=== PATIENT | female | born 1955 | race Caucasian/White ===

== ENCOUNTER → 2020-06-30 | Outpatient (CLI) | payer MEDICARE ==
[~2020-06-30] MED LIST: AMLO-257 PO; LORA1TAB3 PO; METO200T49 PO; TRAM50TA4 PO
== END | disposition home or self-care (01) ==
LOC: SHCH 13:15
PROVIDERS: ATTEND Internal Medicine Cardiovascular Disease
DX: I11.9 Hypertensive heart disease without heart failure (principal); I10 Essential (primary) hypertension; R06.09 Other forms of dyspnea; R09.89 Other specified symptoms and signs involving the circulatory and respiratory systems; R55 Syncope and collapse
CPT/HCPCS: 93306; 93356; 93880

== ENCOUNTER 2021-04-27 10:00 | Observation (INO) | payer OTHER ==
[~2021-04-27] VITALS: Ht 172.7 cm; Wt 89.4 kg
[2021-04-27 10:51] LABS: APPEARANCE,URINE Cloudy (CLEAR); BILIRUBIN,URINE Negative (NEGATIVE); COLOR,URINE Yellow (YELLOW); GLUCOSE, URINE (UA) Negative (NEGATIVE); KETONES,URINE Negative (NEGATIVE); LEUKOCYTE ESTERASE ,URINE Large (NEGATIVE); NITRATE,URINE Positive (NEGATIVE); OCCULT BLOOD,URINE Negative (NEGATIVE); PH,URINE 5.5 (5.0-8.0); PROTEIN,URINE Negative (NEGATIVE); UROBILINOGEN,URINE 0.2 mg/dL (0.2-1.0)
[2021-04-27 10:56] LABS: BASOPHILS % (AUTO) 0.8 % (0.0-5.0); EOSINOPHILS % (AUTO) 3.7 % (0.0-8.0); HEMATOCRIT 33.2 % (36-48); LYMPHOCYTES % (AUTO) 10.6 % (21.0-51.0); MEAN CORPUSCULAR HEMOGLOBIN 31.1 pg (27.0-33.0); MEAN CORPUSCULAR HGB CONC 32.2 g/dL (32.0-36.0); MEAN CORPUSCULAR VOLUME 96.5 fL (79-99); MONOCYTES % (AUTO) 6.4 % (3.0-13.0); NEUTROPHILS % (AUTO) 78.1 % (40.0-77.0); PLATELET COUNT (AUTO) 304 K/uL (130-400); RED BLOOD CELL COUNT(AUTO) 3.44 MIL/uL (4.00-5.50); RED CELL DISTRIBUTION WIDTH 14.7 % (11.0-15.5); WHITE BLOOD COUNT (AUTO) 9.9 K/uL (4.8-10.8)
[2021-04-27 10:58] LABS: BACTERIA,URINE Many /HPF (None Seen); RBC,URINE 0-1 /HPF (0-1); SQUAMOUS EPITHELIAL CELL,UR Rare /HPF (0-2); WBC,URINE >100 /HPF (0-1)
[2021-04-27 11:11] LABS: CREATININE 0.9 mg/dL (0.5-1.5); POTASSIUM 4.4 mmol/L (3.5-5.1)
[2021-04-27 12:01] VITALS: BP 122/70
[2021-04-27 12:01] LABS: INR 1.04 (0.85-1.15); PROTHROMBIN TIME 11.3 SEC (9.6-11.6)
[2021-04-27] MEDS ORDERED: CARV25TA PO (12:04)
[2021-04-27] MEDS ORDERED: LOSA100T58 PO (12:04)
[2021-04-27] MEDS ORDERED: AMLO-258 PO (12:04)
[2021-04-27] MEDS ORDERED: CLON0.1T PO (12:04)
[2021-04-27] MEDS ORDERED: FOLI0.4T6 PO (12:04)
[2021-04-28] VITALS (28 sets, daily range): BP systolic 120–153; BP diastolic 65–85
[2021-04-28] MEDS ORDERED: CEFAZOLIN SODIUM 1 GM VIAL IVP SCH (06:00)
[2021-04-28] MEDS ORDERED: GENTAMICIN SULFATE 240 MG in 0.9%NACL 100ML 100 ML IV SCH (06:00)
[2021-04-28] MEDS ORDERED: VANCOMYCIN 1G/250ML KIT 250 ML IV ONE (07:10)
[2021-04-28] MEDS ORDERED: LACTATED RINGERS 1000ML 1,000 ML IV ONE (07:10)
[2021-04-28] MEDS ORDERED: OMEP20CA12 PO (07:27)
[2021-04-28] MEDS ORDERED: CEFAZOLIN SODIUM 1 GM VIAL ONE ×2 (07:43→07:44)
[2021-04-28] MEDS ORDERED: LIDOCAINE PF 100MG/5ML (2%) SYRINGE 5ML ONE (08:08)
[2021-04-28] MEDS ORDERED: SUCCINYLCHOLINE CHLORIDE 20 MG/ML 10 ML VIAL ONE (08:08)
[2021-04-28] MEDS ORDERED: DEXAMETHASONE SOD PHOSPHATE 10MG/ML 1ML VIAL ONE (08:08)
[2021-04-28] MEDS ORDERED: PROPOFOL 10 MG/ML 20ML VIAL IV ONE (08:09)
[2021-04-28] MEDS ORDERED: MIDAZOLAM HCL 1 MG/ML 2ML VIAL ONE (08:09)
[2021-04-28] MEDS ORDERED: ROCURONIUM 10MG/1ML SYR 10 MG/ML ML ONE ×2 (08:09→09:38)
[2021-04-28] MEDS ORDERED: FENTANYL CITRATE PF 50 MCG/1 ML 2ML VIAL ONE (08:09)
[2021-04-28] MEDS ORDERED: ROPIVACAINE 0.5% 5MG/ML 30ML IJ ONE (08:09)
[2021-04-28] MEDS: VANCOMYCIN 1.5GM/NS 250ML IV SCH ×4 (08:30→09:09)
[2021-04-28] MEDS ORDERED: EPHEDRINE SULFATE 50 MG/ML AMPULE ONE (09:12)
[2021-04-28] MEDS ORDERED: VANCOMYCIN 1G VIAL ONE (09:17)
[2021-04-28] MEDS ORDERED: CALCIUM CARB 500MG PO PRN (12:00)
[2021-04-28] MEDS: CEFAZOLIN SODIUM 1 GM VIAL IVP SCH ×2 (12:00→20:37)
[2021-04-28] MEDS: 0.9%NACL 1000ML 1,000 ML IV SCH ×2 (12:00→22:28)
[2021-04-28] MEDS ORDERED: DiphenhydrAMINE HCL 50 MG/ML VIAL IVP PRN (12:00)
[2021-04-28] MEDS: PSYLLIUM SEED 1 EACH PACKET PO SCH (12:00)
[2021-04-28] MEDS ORDERED: OXYCODONE HCL 5 MG TAB PO PRN (12:00)
[2021-04-28] MEDS ORDERED: FERROUS FUMARATE 324 MG TABLET PO PRN (12:00)
[2021-04-28] MEDS ORDERED: KETOROLAC 15MG/ML VIAL (15MG/ML) IV PRN (12:00)
[2021-04-28] MEDS ORDERED: ONDANSETRON 4MG INJ IVP PRN (12:00)
[2021-04-28] MEDS ORDERED: KCL 20 MEQ ERTAB PO PRN (12:00)
[2021-04-28] MEDS ORDERED: LIDOCAINE HCL-MPF 1% 2ML VIAL IV PRN (12:00)
[2021-04-28] MEDS ORDERED: POTASSIUM CHLORIDE 10% ELIXIR 20 MEQ/15 ML UDCUP PO PRN (12:00)
[2021-04-28] MEDS: ACETAMINOPHEN 500 MG TABLET PO SCH ×2 (12:00→20:36)
[2021-04-28] MEDS ORDERED: POTASSIUM CHLORIDE 20MEQ/100ML 100 ML IV PRN (12:00)
[2021-04-28] MEDS ORDERED: TEMAZEPAM 15 MG CAPSULE PO PRN (12:00)
[2021-04-28] MEDS: TRAMADOL HCL 50 MG TABLET PO PRN (18:51)
[2021-04-28] MEDS: OXYCODONE HCL 5 MG TAB PO PRN (20:31)
[2021-04-28] MEDS: FAMOTIDINE 20MG TAB PO SCH (20:31)
[2021-04-28] MEDS: NITROFURANTOIN MONOHYD/M-CRYST 100 MG CAPSULE PO SCH (20:31)
[2021-04-28] MEDS: ASPIRIN 81 MG EC TAB PO SCH (20:31)
[2021-04-28] MEDS: CELECOXIB 200 MG CAP PO SCH (20:31)
[2021-04-28] MEDS: CARVEDILOL 25 MG TABLET PO SCH (20:38)
[2021-04-28] MEDS ORDERED: HYDROMORPHONE 1 MG INJ ONE (22:55)
[2021-04-28] MEDS: HYDROMORPHONE 1 MG INJ IVP PRN (22:59)
[2021-04-28] MEDS ORDERED: HYDROMORPHONE 1 MG INJ IVP PRN (23:30)
[2021-04-29] VITALS: BP 123/65
[2021-04-29] MEDS: OXYCODONE HCL 5 MG TAB PO PRN ×2 (01:48→09:22)
[2021-04-29 04:00] VITALS: BP 123/69
[2021-04-29] MEDS: ACETAMINOPHEN 500 MG TABLET PO SCH ×2 (04:25→12:17)
[2021-04-29 04:38] LABS: HEMATOCRIT 26.3 % (36-48); MEAN CORPUSCULAR HEMOGLOBIN 30.1 pg (27.0-33.0); MEAN CORPUSCULAR HGB CONC 30.4 g/dL (32.0-36.0); MEAN CORPUSCULAR VOLUME 98.9 fL (79-99); RED BLOOD CELL COUNT(AUTO) 2.66 MIL/uL (4.00-5.50); RED CELL DISTRIBUTION WIDTH 15.1 % (11.0-15.5); WHITE BLOOD COUNT (AUTO) 8.9 K/uL (4.8-10.8)
[2021-04-29 04:47] LABS: CREATININE 1.1 mg/dL (0.5-1.5); POTASSIUM 3.9 mmol/L (3.5-5.1)
[2021-04-29] MEDS: HYDROMORPHONE 1 MG INJ IVP PRN (05:32)
[2021-04-29 07:30] VITALS: BP 113/58
[2021-04-29] MEDS: 0.9%NACL 1000ML 1,000 ML IV SCH (08:00)
[2021-04-29] MEDS ORDERED: AMLODIPINE 5 MG TAB PO SCH (09:00)
[2021-04-29] MEDS: CARVEDILOL 25 MG TABLET PO SCH (09:00)
[2021-04-29] MEDS ORDERED: POLYETHYLENE GLYCOL 3350 17 GM POWD.PACK PO SCH (09:00)
[2021-04-29] MEDS ORDERED: PANTOPRAZOLE 40 MG TAB DR PO SCH (09:00)
[2021-04-29] MEDS: CELECOXIB 200 MG CAP PO SCH (09:02)
[2021-04-29] MEDS: FAMOTIDINE 20MG TAB PO SCH (09:04)
[2021-04-29] MEDS: NITROFURANTOIN MONOHYD/M-CRYST 100 MG CAPSULE PO SCH (09:05)
[2021-04-29] MEDS: ASPIRIN 81 MG EC TAB PO SCH (09:05)
[2021-04-29] MEDS ORDERED: FERR324T10 PO (10:21)
[2021-04-29] MEDS ORDERED: NITR100C4 PO (10:21)
[2021-04-29 11:00] VITALS: BP 119/67
[2021-04-29] MEDS: TRAMADOL HCL 50 MG TABLET PO PRN (12:21)
[2021-04-29] MEDS: PSYLLIUM SEED 1 EACH PACKET PO SCH (12:22)
[2021-04-30] MEDS ORDERED: BISACODYL 5 MG TABLET.DR PO PRN (12:00)
[2021-05-01] MEDS ORDERED: BISACODYL 10 MG SUPP.RECT RC PRN (12:00)
== END 2021-04-29 13:23 | disposition home or self-care (01) ==
LOC: DAHIP 04-28 06:27 → OBSVTOIN 04-28 06:27 → INTOOBSV 04-28 06:27 → EDSTATUS 04-28 10:00 → 3AH 04-28 17:25
PROVIDERS: ADMIT Orthopaedic Surgery; ATTEND Orthopaedic Surgery
DX: S42.291A Other displaced fracture of upper end of right humerus, initial encounter for closed fracture (principal); Z20.822 Contact with and (suspected) exposure to COVID-19; M25.511 Pain in right shoulder; N39.0 Urinary tract infection, site not specified; I10 Essential (primary) hypertension; F17.210 Nicotine dependence, cigarettes, uncomplicated; D62 Acute posthemorrhagic anemia; Z86.16 Personal history of COVID-19; Z79.899 Other long term (current) drug therapy; Z98.890 Other specified postprocedural states; W54.1XXA Struck by dog, initial encounter; W19.XXXA Unspecified fall, initial encounter; Y93.89 Activity, other specified; Y92.89 Other specified places as the place of occurrence of the external cause; Y99.8 Other external cause status
CPT/HCPCS: 23615; 36415 ×3; 64415; 73030; 80048 ×2; 81001; 85025; 85027; 85610; 86850; 86900; 86901; 87077; 87088; 87186; 87635; 87641; 93005; 96374; 96375; 96376; A4215; A4221; A4222; A4223 ×2; A4565; A4600; A4663; A4930; A6204; C1713 ×7; G0378 ×20; J0330; J0690 ×2; J1100; J1170 ×2; J1580; J1885; J2001; J2250; J2704; J2795; J3010; J3370 ×3; J3490; J7030; J7050; J7120

== ENCOUNTER → 2022-09-15 | Outpatient (CLI) | payer OTHER ==
[~2022-09-15] MED LIST changes: -AMLO-257 PO; +AMLO-258 PO; +CARV25TA PO; +FERR324T10 PO; -LORA1TAB3 PO; -METO200T49 PO; +NITR100C4 PO; +OMEP20CA12 PO; -TRAM50TA4 PO
== END | disposition home or self-care (01) ==
LOC: RAH 10:00
PROVIDERS: ATTEND Internal Medicine
DX: K75.3 Granulomatous hepatitis, not elsewhere classified (principal); F10.20 Alcohol dependence, uncomplicated
CPT/HCPCS: 76700

== ENCOUNTER → 2024-04-01 | Outpatient (CLI) | payer OTHER ==
--- NOTE | 2024-04-01 14:27 | HMCIMG ---
CT HEART SAVER PROMOTIONAL HISTORY: Calcium scoring COMPARISON: None TECHNIQUE: Computed tomography of the heart was performed with ECG gating and suspended respiration. Postprocessing was performed on a computer workstation to obtain diastolic phase images, determine calcium score and provide a quantitative assessment of extent of disease. This CT included only the heart. HeartSaver score is 3205.8. Please see cardiac calcium score report. The available CT chest images show no acute finding. CT was performed with one or more following dose reduction techniques: automated exposure control, adjustment of the mA and kv according to patient's size, or use of a iterative reconstruction technique.
== END | disposition home or self-care (01) ==
LOC: RAH 13:08
PROVIDERS: ATTEND Internal Medicine Cardiovascular Disease
DX: Z13.6 Encounter for screening for cardiovascular disorders (principal)
CPT/HCPCS: 75571

== ENCOUNTER → 2024-04-07 | Outpatient (CLI) | payer OTHER ==
--- NOTE | 2024-04-07 11:54 | HMCIMG ---
US ABDOMINAL RUQ\E\LTD HISTORY: liver disease, unspecified COMPARISON: 09/15/2022 FINDINGS: There is moderate fatty infiltration of the liver. There are no focal liver masses. The liver is borderline in size at 16 cm.There is a normal-appearing gallbladder. Common duct is normal. Right kidney is normal with no evidence of mass, hydronephrosis or stone.The pancreas appears normal as well. IMPRESSION: 1. Mild to moderate hepatic steatosis, liver size is borderline at 2. Otherwise unremarkable exam.
--- NOTE | 2024-04-08 12:17 | HMCSR ---
APPROVED REPORT EXAM: Two-dimensional and M-mode echocardiogram with Doppler and color Doppler. INDICATION ICD: Liver disease k76.9 2D Dimensions RVDd2.8 cmLVEF(%)66.6 (>50%)LVED Vol(simp.)74.2 mL IVSd1.0 (0.7-1.1cm)FS(%)37 %LVES Vol(simp.)32.4 mL LVDd5.0 (3.8-5.6cm)LA (2D)3.9 (1.6-4.0cm)LVEF(%, simp.)56 % PWd1.0 (0.7-1.1cm)Ao Root(2D)3.6 (2.0-3.7cm) LVDs3.1 (2.5-4.0cm)LVOT diam2.2 (1.8-2.4cm) IVC diam1.5 cm M-Mode Dimensions EPSS0.6 cm LA (MM)3.2 (1.6-4.0cm) Ao Root(MM)2.5 (2.0-3.7cm) Aortic Valve AoV Vmax1.2 m/Luis Peak GR5.7 mmHgLVOT Vmax1.3 m/s AoV VTI0.2 mAo Mean GR3.4 mmHgLVOT VTI0.27 m SABA (VMAX)4.2 cm2AVA (VTI) 4.2 cm2 Mitral Valve MV E Vmax78.2 cm/sDECEL Kvtm862 ms MV A Ctsr786.3 cm/sP 1/2 T83 ms E/A ratio0.7MVA (PHT)2.6 cm2 TDI E/E' Ojiuei62.6 Left Ventricle The left ventricle is normal size. There is normal LV segmental wall motion. There is normal left larry tricular wall thickness. LVEF is 55-60%. No left ventricle thrombus noted on this study. The left larry tricular diastolic function is normal. Right Ventricle The right ventricle is normal size. The right ventricular systolic function is normal. Atria The left atrium size is normal. The interatrial septum is intact with no evidence for an atrial septa l defect. The right atrium size is normal. Aortic Valve The aortic valve is normal in structure. No aortic regurgitation is present. There is no aortic valvu lar stenosis. Mitral Valve The mitral valve is normal in structure. There is no mitral valve regurgitation noted. There is no mi tral valve stenosis. Tricuspid Valve The tricuspid valve is normal in structure. There is no tricuspid valve regurgitation noted. Pulmonic Valve The pulmonary valve is normal in structure. There is no pulmonic valvular regurgitation. Great Vessels The aortic root is normal in size. The IVC is normal in size and collapses >50% with inspiration. Pericardium There is no pericardial effusion. Conclusion The left ventricle is normal size. LVEF is 55-60%. There is normal LV segmental wall motion. The right ventricle is normal size. The left atrium size is normal. The aortic valve is normal in structure. No aortic regurgitation is present. There is no aortic valvular stenosis. The mitral valve is normal in structure. There is no mitral valve regurgitation noted. There is no mitral valve stenosis. There is no tricuspid valve regurgitation noted. There is no pulmonic valvular regurgitation. The aortic root is normal in size. The IVC is normal in size and collapses >50% with inspiration. There is no pericardial effusion.
== END | disposition home or self-care (01) ==
LOC: RAH 08:07
PROVIDERS: ATTEND Internal Medicine Cardiovascular Disease
DX: K76.0 Fatty (change of) liver, not elsewhere classified (principal); K76.9 Liver disease, unspecified
CPT/HCPCS: 76705; 93306

== ENCOUNTER → 2024-05-08 | Outpatient (CLI) | payer OTHER ==
[~2024-05-08] MED LIST changes: +IOHEXOL-300 50 ML VIAL IV ONE
--- NOTE | 2024-05-08 12:04 | HMCIMG ---
US CAROTID DUPLEX HISTORY: Carotid bruit COMPARISON: None TECHNIQUE: Duplex carotid arterial Doppler ultrasound study was performed. FINDINGS: The common, internal and external carotid arteries are visualized. Bilateral tortuous carotid arteries are noted. The peak systolic velocities of right common carotid artery is 74 centimeters per second, right internal carotid artery is 112 centimeters per second, right external carotid artery is 83 centimeters per second, and right vertebral artery is 63 centimeters per second. Right internal carotid artery to right common carotid artery ratio is 1.5. Right vertebral artery is seen with antegrade flow. The peak systolic velocities of left common carotid artery is 115 centimeters per second, left internal carotid artery is 139 centimeters per second, left external carotid artery is 76 centimeters per second, and left vertebral artery is 77 centimeters per second. Left internal carotid artery to left common carotid artery ratio is 1.2. Left vertebral artery is seen with antegrade flow. There are bilateral echogenic plaques. IMPRESSION: 1. No hemodynamically significant lesion is seen of either extracranial carotid artery system.
--- NOTE | 2024-05-08 13:43 | HMCIMG ---
CT CHEST W/WO CONTRAST HISTORY: Shortness of breath COMPARISON: None TECHNIQUE: Multiple sequential axial images of the chest were obtained from the thoracic inlet through upper abdomen. Patient was given 50 cc of Omnipaque through intravenous route. FINDINGS: There are bilateral breast implants. There is no evidence of pulmonary nodule or parenchymal disease. No pleural effusion or pericardial effusion is seen. There is no evidence of pneumothorax. There are normal size mediastinal and hilar lymph nodes. The heart is not enlarged. Degenerative changes of the thoracolumbar spine are present. There is no evidence of adrenal nodule. Left kidney is not seen. IMPRESSION: 1. No evidence of pulmonary nodule or effusion is seen. CT was performed with one or more following dose reduction techniques: automated exposure control, adjustment of the mA and kv according to patient's size, or use of a iterative reconstruction technique.
== END | disposition home or self-care (01) ==
LOC: RAH 11:11
PROVIDERS: ATTEND Internal Medicine Cardiovascular Disease
DX: R09.89 Other specified symptoms and signs involving the circulatory and respiratory systems (principal); R06.02 Shortness of breath; M47.815 Spondylosis without myelopathy or radiculopathy, thoracolumbar region; N80.8 Other endometriosis; Z98.82 Breast implant status
CPT/HCPCS: 93880; 71270; Q9967

== ENCOUNTER → 2024-05-09 | Outpatient (CLI) | payer OTHER ==
[~2024-05-09] MED LIST changes: +IOHEXOL 350 MG/ML 100ML INFUS..BTL IV ONE; -IOHEXOL-300 50 ML VIAL IV ONE
[2024-05-09] MEDS: REGADENOSON 0.4 MG/5 ML PF SYG IVP ONE (11:47)
--- NOTE | 2024-05-12 13:31 | HMCSR ---
APPROVED REPORT Height: 5 ft 7in Weight: 192 lbs TEST INDICATIONS CAD The imaging protocol used to acquire images was Rest Tc-99m/stress Tc-99m 1 day Consent: The procedure was explained and understood by the patient. Informerd consent was witnessed Anastasia Sanchez RN First, low dose rest was performed then high dose stress. RESTING DATA: The resting ekg shows: NSR Rest SPECT myocardial perfusion imaging was performed in supine position 89 minutes following the int ravenous injection of 11.0 mCi of Tc-99 Sestamibi. Time of rest injection: Date: 05/09/2024 Time of rest imaging: Date: 05/09/2024 PHARMACOLOGIC STRESS: Pharmacologic stress test was performed by injecting regadenoson 0.4 mg IV push followed by the intra venous injection of 31.0 mCi of Tc-99 Sestamibi. Time of stress injection: Date: 05/09/2024 Time of stress imaging: Date: 05/09/2024 Heart Rate at time of stress injection: 88 bpm. Gated Stress SPECT was performed 83 minutes after stress injection. The images were gated to evaluate regional wall motion and calculate left ventricular ejection fracti on. STRESS DETAILS Reason for Termination: Infusion complete Stress Symptoms: Dyspnea; Chest discomfort Max HR Achieved: 112 bpm % of APMHR Achieved: 74 Max Blood Pressure: 188/172 mmHg Stress ECG: NSR LEFT VENTRICLE Size: The left ventricular size is mildly dilated. Systolic Function:The left ventricular systolic function is moderately to severely decreased. Wall Motion: Global hypokinesis, most marked in the infero-apical segments. The left ventricular ejection fraction was calculated to be 34%.TID = . LV PERFUSION The rest and stress images show normal perfusion. Conclusion The left ventricular size is mildly dilated. The left ventricular systolic function is moderately to severely decreased. Global hypokinesis, most marked in the infero-apical segments. The rest and stress images show normal perfusion. The left ventricular ejection fraction was calculated to be 34%.
== END | disposition home or self-care (01) ==
LOC: SHCH 08:27
PROVIDERS: ATTEND Internal Medicine Cardiovascular Disease
DX: I25.10 Atherosclerotic heart disease of native coronary artery without angina pectoris (principal); R07.89 Other chest pain; R06.00 Dyspnea, unspecified
CPT/HCPCS: 78452; 93017; J2785; A9500 ×2; Q9967

== ENCOUNTER 2024-06-20 06:00 | Day surgery (SDC) | payer OTHER ==
--- NOTE | 2024-06-17 10:58 | EKG ---
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
[2024-06-17 11:06] VITALS: BP 109/63; PULSE 91; RESP 18; TEMP 97.3
[2024-06-17 11:23] LABS: BASOPHILS # (AUTO) 0.05 K/uL (0.00-0.20); EOSINOPHILS # (AUTO) 0.18 K/uL (0.00-0.70); EOSINOPHILS % (AUTO) 3.5 % (0.0-8.0); HEMATOCRIT 36.4 % (36-48); IMMATURE GRANULOCYTE ABSOLUTE 0.01 K/uL (0-1); LYMPHOCYTES # (AUTO) 0.9 K/uL (1.0-4.8); LYMPHOCYTES % (AUTO) 17.6 % (21.0-51.0); MEAN CORPUSCULAR HEMOGLOBIN 34.2 pg (27.0-33.0); MEAN CORPUSCULAR HGB CONC 33.8 g/dL (32.0-36.0); MEAN CORPUSCULAR VOLUME 101.1 fL (79-99); MONOCYTES # (AUTO) 0.4 K/uL (0.1-1.0); MONOCYTES % (AUTO) 7.7 % (3.0-13.0); NEUTROPHILS # (AUTO) 3.6 K/uL (1.8-7.7); PLATELET COUNT (AUTO) 210 K/uL (130-400); RED CELL DISTRIBUTION WIDTH 12.8 % (11.0-15.5); WHITE BLOOD COUNT (AUTO) 5.2 K/uL (4.8-10.8)
[2024-06-17 11:32] LABS: CREATININE 1.1 mg/dL (0.5-1.0); POTASSIUM 4.8 mmol/L (3.5-5.1)
[2024-06-17 11:53] LABS: INR 1.02 (0.85-1.15); PROTHROMBIN TIME 10.8 SEC (9.6-11.6)
[2024-06-17 11:55] LABS: PARTIAL THROMBOPLASTIN TIME 30.2 SEC (26.3-35.5)
[2024-06-17 12:01] LABS: B-TYPE NATRIURETIC PEPTIDE 56 pg/mL (0-100)
--- NOTE | 2024-06-17 12:45 | HMCIMG ---
CHEST 1VW HISTORY: Preop COMPARISON: None FINDINGS: A frontal projection of the chest was obtained. No acute pulmonary infiltrates is seen. The heart is borderline enlarged. Postop changes are seen of the right humerus. No evidence of aortic calcification is seen. IMPRESSION: 1. No acute pulmonary infiltrate is seen.
[~2024-06-20] VITALS: Ht 170.2 cm; Wt 86.5 kg
[2024-06-20] VITALS (10 sets, daily range): BP systolic 125–156; BP diastolic 68–96; PULSE 85–102; RESP 14–22; TEMP 96.8–97.3
[~2024-06-20 06:00] MED LIST changes: -AMLO-258 PO; +ASPI-1443 PO; +CARV12.511 PO; -CARV25TA PO; +DULO30CA52 PO; -FERR324T10 PO; -IOHEXOL 350 MG/ML 100ML INFUS..BTL IV ONE; -NITR100C4 PO; -OMEP20CA12 PO; +PANT40TA54 PO; +ROSU10TA72 PO; +TIZA4CAP8 PO
[2024-06-20] MEDS: 0.9%NACL 1000ML 1,000 ML IV SCH (06:58)
[2024-06-20] MEDS ORDERED: HEParin-NS 1,000 UNIT/500 ML 1,000 ML IV ONE (07:04)
[2024-06-20] MEDS ORDERED: LIDOCAINE HCL 400MG/20ML VIAL ONE (07:04)
[2024-06-20] MEDS ORDERED: HEParin 10,000 UNIT/10ML (1,000 UNIT/ML) VIAL ONE (07:04)
[2024-06-20] MEDS ORDERED: IOHEXOL 350 MG/ML 100ML INFUS..BTL IV ONE (07:04)
[2024-06-20] MEDS ORDERED: NITROGLYCERIN 50MG VIAL ONE (07:05)
[2024-06-20] MEDS ORDERED: SODIUM BICARB 50MEQ 50ML VIAL 50 ML ONE (07:06)
[2024-06-20 07:17] LABS: APPEARANCE,URINE CLEAR (CLEAR); BILIRUBIN,URINE NEGATIVE (NEGATIVE); COLOR,URINE COLORLESS (YELLOW); GLUCOSE, URINE (UA) NEGATIVE (NEGATIVE); KETONES,URINE NEGATIVE (NEGATIVE); LEUKOCYTE ESTERASE ,URINE 250 Leu/uL (NEGATIVE); NITRATE,URINE NEGATIVE (NEGATIVE); OCCULT BLOOD,URINE NEGATIVE (NEGATIVE); PROTEIN,URINE NEGATIVE (NEGATIVE); UROBILINOGEN,URINE 0.2 mg/dL (0.2-1.0)
[2024-06-20 07:22] LABS: ADD UA MICROSCOPIC YES
[2024-06-20] MEDS ORDERED: IOHEXOL-350 50ML VIAL IV ONE (07:26)
[2024-06-20 07:28] LABS: BACTERIA,URINE RARE /HPF (None Seen); RBC,URINE 0-1 /HPF (0-1); SQUAMOUS EPITHELIAL CELL,UR RARE /HPF (0-2)
[2024-06-20] MEDS ORDERED: FENTanyl CITRate PF 50 MCG/1 ML 2ML VIAL ONE ×2 (07:29→09:02)
[2024-06-20] MEDS ORDERED: MIDAZOLAM HCL 1 MG/ML 2ML VIAL ONE ×5 (07:29→09:02)
[2024-06-20] MEDS ORDERED: niCARDIpine 25MG INJ IV ONE (07:31)
[2024-06-20] MEDS ORDERED: hydrALAZine 20MG/ML VIAL ONE (08:30)
[2024-06-20] MEDS ORDERED: LAbetaLOL 20MG SYG IV ONE (08:37)
[2024-06-20] MEDS ORDERED: cloPIDOgrel 300MG TAB ONE (08:56)
[2024-06-20] MEDS ORDERED: 0.9%NACL 1000ML 1,000 ML IV SCH (09:30)
--- NOTE | 2024-06-20 10:19 | CCATH ---
PROCEDURES: * Left heart cath. * Left ventriculogram. * Selective right and left coronary arteriogram. * Shockwave lithotripsy of the LAD. * Balloon angioplasty of the LAD. * Stenting of the LAD. * Conscious sedation for 60 minutes. INDICATIONS: * Severe coronary artery disease. * Abnormal Lexiscan. * Recurrent angina. COMPLICATIONS: None. TOTAL CONTRAST: Approximately 105 mL APPROACH: Right radial approach. DESCRIPTION OF PROCEDURE: The patient was taken to the cardiac geophysical laboratory director after appropriate operative consents were signed. She was prepped and draped in the usual fashion. After conscious sedation was administered, the right radial artery region was infiltrated with 2% Xylocaine without epinephrine. A 6-Swedish sheath slender radial was advanced in retrograde fashion by modified Seldinger technique over an indwelling wire. At this point, a TIG 4 catheter was advanced over an indwelling wire. This was selectively engaged the ostium of the left main. Left main was imaged in multiplane. The left main was a large vessel that had some calcification, but was free of disease. It bifurcated into an LAD, and a circumflex. Circumflex coronary artery was a moderately-sized vessel that gave rise to a moderately sized obtuse marginal 1 that had a 60% proximal lesion and was fairly tortuous in the mid segment. The ongoing circ was normal, giving rise to a small OM2, which was also normal. The LAD was a large vessel that gave rise to several diagonals and septal perforators. The proximal LAD had a heavily calcified lesion that started just proximal to the first diagonal and involved the ostium of the first diagonal, however, that was not severely diseased and extended to beyond the first diagonal and a Pimentel 1:01 classification. The diagonal 1 was moderately large and branching and was free of disease. The ongoing circ was large and tortuous in its mid to distal segment, but was free of disease. The catheter was then disengaged from the left main and engaged in the ostium of the right coronary artery. This was imaged, identifying a very large right coronary artery was heavily calcified in its proximal portion with a 20% stenotic lesion. It gave rise to an acute marginal branch and a large PDA and a large branching PLVB. The right coronary system was otherwise free of disease. A pigtail catheter was placed in the left ventricular cavity. Left ventricular end-diastolic pressure measurement was obtained. Ventriculography was performed with a limited amount of contrast revealing a normal wall motion with EF of 60%. There was no MR and no on pullback. Given the patient's symptoms, her abnormal Cardiolite scan and the findings on the proximal LAD stenosis, the case was reviewed with other fur sorter and we agreed that the most prudent approach is to proceed with shockwave lithotripsy followed by angioplasty, stent procedure. At this point, a 6-Swedish XB 3-1/2 guide was selected and engaged in the left main. A 0.014 wire was advanced and placed in the distal LAD. Attempts at passing a 3.0 shockwave lithotripsy balloon were not successful due to the degree of stenosis and calcification, this necessitated utilization of a GuideLiner, which was placed in the left main and the proximal LAD allowing the balloon to be placed in the area of stenosis in the proximal to mid LAD. The balloon was inflated to 4 atmospheres and 3 separate treatments were administered. This was followed by utilizing a 3.5 x 18 drug-eluting Zwolle Kerens stent that was deployed in the proximal and mid LAD traversing the ostium of the first diagonal. This was inflated to 12 atmospheres. We then advanced a 3.5 NC balloon x 15 which was placed in the area within the stent and inflated to 16 atmospheres at 3.52 mm size. The final angiographic results were good. The wires were removed and the catheter was removed over an indwelling wire. The patient tolerated the procedure well and left the cardiac geophysical laboratory director in stable condition. FINAL IMPRESSION: * Severe LAD stenosis in the proximal segment. * Moderate OM1 stenosis and nonobstructive RCA stenosis. * Preserved left ventricular systolic function, EF of 60%. * No MR. * No aortic stenosis. * Successful shockwave lithotripsy of the LAD with a 3.0 x 15 balloon and placement of a 3.5 x 18 drug-eluting stent, Zwolle Kerens, postdilated with a 3.5 NC balloon to 3.52 size at 16 atmospheres with good results. PLAN: Continue medical management. TID: [id number] RECEIPT: [id number]
--- NOTE | 2024-06-20 11:25 | NUR ---
URINARY: PT VOIDED 400CC CLEAR YELLOW COLOR URINE PER BEDPAN WITHOUT DIFFICULTY.
== END 2024-06-20 13:00 | disposition home or self-care (01) ==
LOC: DAH 06:00
PROVIDERS: ATTEND Internal Medicine Cardiovascular Disease
DX: R94.39 Abnormal result of other cardiovascular function study (principal); I25.118 Atherosclerotic heart disease of native coronary artery with other forms of angina pectoris; I10 Essential (primary) hypertension; K21.9 Gastro-esophageal reflux disease without esophagitis; E78.5 Hyperlipidemia, unspecified; F17.200 Nicotine dependence, unspecified, uncomplicated; M81.0 Age-related osteoporosis without current pathological fracture; R06.02 Shortness of breath; I95.1 Orthostatic hypotension; J44.9 Chronic obstructive pulmonary disease, unspecified; Z20.822 Contact with and (suspected) exposure to COVID-19; Z95.5 Presence of coronary angioplasty implant and graft; Z79.01 Long term (current) use of anticoagulants; Z79.899 Other long term (current) drug therapy
CPT/HCPCS: 80048; 83880; 85025; 85610; 85730; 36415; 71045; 93005; 92972; 85347; 87086; 81001; 93458; C9600; C1769 ×2; C1725; C1874; C1887 ×2; A4649; C1894; C1761; J3010 ×2; J3490 ×4; J7030; J0360; J1644 ×2; J2250 ×5; Q9967 ×2; A4215; A4335; A4222; A6260; A4221; A4663; A4216; A6206; A4606; Q9965 ×2; A4223 ×3; A4554; 92973; 96360; 96361; 99156; 99157

== ENCOUNTER 2024-07-03 11:03 | Observation (INO) | payer OTHER ==
[~2024-07-03] VITALS: Ht 198.1 cm; Wt 84.8 kg
--- NOTE | 2024-07-03 11:09 | ERN ---
ED Note History of Present Illness Stated Complaint: SYNCOPE Chief Complaint: Syncope Time Seen by MD: 11:05 Dictation: PATIENT IS A 68-YEAR-OLD FEMALE HERE WITH A HISTORY OF CAD AND A CARDIAC STENT PLACED BY TWO WEEKS AGO. SHE STATES SHE WAS GOING TO BREAKFAST THIS MORNING WITH HER AND WHEN SHE GOT OUT OF THE CAR SHE STOOD UP AND FELT LIKE SHE WAS GOING TO FAINT. SHE SAID SHE IMMEDIATELY SAT BACK DOWN WAITED A COUPLE OF MINUTES AND THEN ATTEMPTED TO STAND UP AND FELT LIGHTHEADED AGAIN. EMS WAS CALLED AT THAT TIME PATIENT TRANSPORTED TO THE EMERGENCY ROOM. SHE IS CURRENTLY ALERT AND ORIENTED X4 SPEECH IS CLEAR NIH IS 0. SHE DENIES ANY CHEST PAIN BACK PAIN NO HEADACHE AND IS NEUROLOGICALLY INTACT. PATIENT NOTED TO BE IN A SINUS RHYTHM ON THE MONITOR, BLOOD PRESSURE IS 91/56 SHE STATES LATELY IT HAS BEEN THE OPPOSITE AND SHE HAS BEEN HYPERTENSIVE DESPITE HER MEDICATIONS. SHE TAKES CARVEDILOL. Allergies: Coded Allergies: No Known Allergies (Unverified Allergy, Unknown, 08/20/15) Home Meds Reported Medications Tizanidine HCl (Tizanidine HCl) 4 Mg Capsule, 4 MG PO BID PRN for PAIN, CAP 06/17/24 Aspirin (Aspirin EC) 81 Mg Tablet.dr, 81 MG PO DAILY, TAB 06/17/24 Rosuvastatin Calcium (Rosuvastatin Calcium) 10 Mg Tablet, 20 MG PO AM, TAB 06/17/24 Duloxetine HCl (Duloxetine HCl) 30 Mg Capsule.dr, 30 MG PO DAILY, CAP 06/17/24 Pantoprazole Sodium (Pantoprazole Sodium) 40 Mg Tablet.dr, 40 MG PO DAILY, TAB 06/17/24 Carvedilol (Carvedilol) 12.5 Mg Tablet, 12.5 MG PO BID, TAB 06/17/24 Past Medical History History: Not Applicable RN Note Reviewed/Agreed w/PFSH: Yes Review of System Dictation CONSTITUTIONAL: NEGATIVE EXCEPT FOR HPI HEAD/FACE: NEGATIVE EXCEPT FOR HPI EENT: NEGATIVE EXCEPT FOR HPI RESPIRATORY: NEGATIVE EXCEPT FOR HPI GASTROINTESTINAL/ABDOMINAL: NEGATIVE EXCEPT FOR HPI GENITOURINARY: NEGATIVE EXCEPT FOR HPI MUSCULOSKELETAL: NEGATIVE EXCEPT FOR HPI INTEGUMENTARY: NEGATIVE EXCEPT FOR HPI NEUROLOGICAL/PSYCH: NEGATIVE EXCEPT FOR HPI NEAR-SYNCOPE HEMATOLOGIC/LYMPHATIC: NEGATIVE EXCEPT FOR HPI ALL SYSTEMS NEGATIVE, EXCEPT NOTED ABOVE. 13 POINT REVIEW OF SYSTEMS ASSESSED AND ALL NEGATIVE EXCEPT FOR ABOVE. Initial Vital Sign VS Vital Signs Date Time Temp Pulse Resp B/P (MAP) Pulse Ox O2 Delivery O2 Flow Rate FiO2 07/03/24 11:04 75 20 91/57 99 0 07/03/24 11:37 98.2 Room Air* 21 Physical Exam Dictation VITAL SIGNS REVIEWED GENERAL APPEARANCE: ALERT, ORIENTED X 3, NO ACUTE DISTRESS, WELL DEVELOPED, NOURISHED. HEAD AND FACE: NON-TRAUMATIC. EYES: PERRL, PINK CONJUNCTIVAS, EYELID NO TRAUMA, ANTERIOR CHAMBER WITH ARCUS SENILIS. EARS: PINNAS INTACT AND NO SIGNS OF TRAUMA OR ERYTHEMA EAR CANALS CLEAR AND NO DISCHARGE TM NO ERYTHEMA NOSE: NO DISCHARGE, NO BLEEDING. OROPHARYNX: MOUTH NORMAL, TONGUE PINK, PHARYNX CLEAR,NO ERYTHEMA, TONSILS NO EXUDATES, NO ABSCESSES NOTED, MUCOUS MEMBRANE MOIST NECK: SUPPLE, NON-TENDER, NO THYROMEGALY, NO MASSES, NO JVD, NO BRUITS BREAST:DEFERRED CHEST:NO TENDERNESS, NO CREPITUS, NO PARADOXICAL MOVEMENT, NO RETRACTIONS LUNGS:CLEAR, WELL-VENTILATED, SYMMETRIC, NO RALES, NO WHEEZING, NO RHONCHI, NO STRIDOR, GOOD BREATH SOUNDS BILATERALLY HEART: REGULAR RATE, REGULAR RHYTHM, NO MURMUR, NO GALLOPS VASCULAR: NO PERIPHERAL EDEMA, ABDOMEN: SOFT, POSITIVE BOWEL SOUNDS, NONDISTENDED, NO GUARDING, NONTENDER, NO REBOUND, NO MASSES NO HEPATOMEGALY, NO SPLENOMEGALY, NO JONES'S SIGN, NO HERNIAS. RECTAL: DEFERRED GENITAL: DEFERRED NEUROLOGICAL: NORMAL SPEECH, MOTOR FUNCTION INTACT, SENSORY FUNCTION INTACT NIH IS 0 MUSCULOSKELETAL: NECK NONTENDER, FULL RANGE OF MOTION, BACK NONTENDER, FULL RANGE OF MOTION, EXTREMITIES: NONTENDER, FULL RANGE OF MOTION SKIN: COLOR PINK, DRY, NO TURGOR, NO RASH, NO LACERATIONS, NO ABRASIONS, NO CONTUSIONS. LYMPHATIC: DEFERRED Results (Laboratory/Radiology) Laboratory/Radiology Laboratory Tests Test 07/03/24 11:26 07/03/24 12:06 White Blood Count 5.5 K/uL (4.8-10.8) Red Blood Count 3.36 MIL/uL (4.00-5.50) L Hemoglobin 11.5 g/dL (12.0-16.0) L Hematocrit 34.1 % (36-48) L Mean Corpuscular Volume 101.5 fL (79-99) H Mean Corpuscular Hemoglobin 34.2 pg (27.0-33.0) H Mean Corpuscular Hemoglobin Concent 33.7 g/dL (32.0-36.0) Red Cell Distribution Width 13.0 % (11.0-15.5) Platelet Count 192 K/uL (130-400) Mean Platelet Volume 9.6 fL (7.5-10.5) Immature Granulocyte % (Auto) 0.4 % (0-1) Neutrophils (%) (Auto) 71.9 % (40.0-77.0) Lymphocytes (%) (Auto) 16.1 % (21.0-51.0) L Monocytes (%) (Auto) 9.1 % (3.0-13.0) Eosinophils (%) (Auto) 2.0 % (0.0-8.0) Basophils (%) (Auto) 0.5 % (0.0-5.0) Neutrophils # (Auto) 3.9 K/uL (1.8-7.7) Lymphocytes # (Auto) 0.9 K/uL (1.0-4.8) L Monocytes # (Auto) 0.5 K/uL (0.1-1.0) Eosinophils # (Auto) 0.11 K/uL (0.00-0.70) Basophils # (Auto) 0.03 K/uL (0.00-0.20) Absolute Immature Granulocyte (auto 0.02 K/uL (0-1) Nucleated Red Blood Cells 0.0 % (0.0-0.19) Prothrombin Time 10.9 SEC (9.6-11.6) Prothromb Time International Ratio 1.03 (0.85-1.15) Activated Partial Thromboplast Time 27.4 SEC (26.3-35.5) Sodium Level 133 mmol/L (136-145) L Potassium Level 4.8 mmol/L (3.5-5.1) Chloride Level 100 mmol/L (101-111) L Carbon Dioxide Level 23 mmol/L (21-32) Blood Urea Nitrogen 15 mg/dL (7-18) Creatinine 1.2 mg/dL (0.5-1.0) H Glomerular Filtration Rate Calc 49 mL/min (>90) Random Glucose 91 mg/dL (70-105) Total Calcium 8.6 mg/dL (8.5-10.1) Magnesium Level 1.80 mg/dL (1.80-2.40) Total Creatine Kinase 80 U/L (21-232) Troponin I High Sensitivity 5 ng/L (4-50) B-Type Natriuretic Peptide 58 pg/mL (0-100) Urine Color LIGHT-YELLOW (YELLOW) Urine Appearance CLEAR (CLEAR) Urine pH 5.5 (5.0-8.0) Urine Specific [place] 1.007 (1.001-1.031) Urine Protein NEGATIVE mg/dL (NEGATIVE) Urine Glucose (UA) NEGATIVE mg/dL (NEGATIVE) Urine Ketones NEGATIVE mg/dL (NEGATIVE) Urine Occult Blood NEGATIVE (NEGATIVE) Urine Nitrate NEGATIVE (NEGATIVE) Urine Bilirubin NEGATIVE mg/dL (NEGATIVE) Urine Urobilinogen 0.2 mg/dL (0.2-1.0) Urine Leukocyte Esterase 250 Rob/uL (NEGATIVE) H Urine RBC 0-1 /HPF (0-1) Urine WBC 11-25 /HPF (0-1) H Urine Squamous Epithelial Cells RARE /HPF (0-2) Urine Bacteria None Seen /HPF (None Seen) 1155/CHEST X-RAY NEGATIVE Labs Reviewed?: Yes EKG Comment: EKG SINUS RHYTHM/HEART RATE 65/LEFT AXIS DEVIATION/NO ACUTE CHANGES ED Course ED Course Orders Procedure Category Date Status Time Cbc With Differential LAB 07/03/24 Complete 11:04 0.9%Nacl 1000ml (Ns PHA 07/03/24 Complete 1000ml) 11:30 12 Lead Ekg Tracing- EKG 07/03/24 Logged Technical 11:05 Prothrombin Time With LAB 07/03/24 Complete INR 11:04 B-Type Natriuretic LAB 07/03/24 Complete Peptide 11:04 Chest 1vw RAD 07/03/24 Resulted 11:04 12 Lead Ekg Tracing- EKG 07/03/24 Complete Technical 11:04 Lactated Ringers PHA 07/03/24 Complete 1000ml (Lactated 11:30 Magnesium LAB 07/03/24 Complete 11:04 Creatine Kinase, Total LAB 07/03/24 Complete 11:04 Troponin I High LAB 07/03/24 Complete Sensitivity 11:04 Urinalysis Profile LAB 07/03/24 Complete 11:04 Partial LAB 07/03/24 Complete Thromboplastin Time 11:04 Basic Metabolic Panel LAB 07/03/24 Complete 11:04 Orthostatic Vital CPOE 07/03/24 Transmitted Signs 11:40 Culture Urine SEAN 07/03/24 In Process 12:48 Ceftriaxone 1g Vial PHA 07/03/24 In Process (Rocephine 1g Inj) 13:30 Current Medications Medications (Trade) Dose Ordered Sig/Aixa Route PRN Reason Start Time Stop Time Status Last Admin Dose Admin Ceftriaxone Sodium (ROCEphine 1G INJ) 1 gm ONCE ONCE IVP 07/03/24 13:30 07/03/24 13:31 07/03/24 13:23 Lactated Ringer's 1,000 ml @ 0 mls/hr ONCE ONCE IV 07/03/24 11:30 07/03/24 11:31 DC 07/03/24 11:33 Sodium Chloride 1,000 ml @ 0 mls/hr ONCE ONCE IV 07/03/24 11:30 07/03/24 11:31 DC Vital Signs Date Time Temp Pulse Resp B/P (MAP) Pulse Ox O2 Delivery O2 Flow Rate FiO2 07/03/24 13:17 98.2 64 16 153/78 98 Room Air* 0 21 07/03/24 11:37 98.2 65 16 116/65 98 Room Air* 0 21 07/03/24 11:04 75 20 91/57 99 0 1220/PARUL RN WAS IN ROOM AND WAS GOING TO START ORTHOSTATIC CHECKS. HE NOTICED ON THE MONITOR THAT PATIENT WENT INTO SVT FOR APPROXIMATELY 15-20 SECONDS WITH A RATE OF 150S 160S. THE RHYTHM DID NOT LAST AND PATIENT IS HEMODYNAMICALLY STABLE AT THIS TIME. SHE IS AWARE THAT I WE WILL BE PUT HER IN THE HOSPITAL FOR IDIOPATHIC SVT HYPOTENSION 1330/SPOKE WITH KAYLA SMITHP HOSPITALIST AND REVIEWED EKG LABS AND INTERVENTIONS FOR UTI. IN ADDITION SHE IS AWARE OF THE IDIOPATHIC RUN OF SVT AND AGREED TO ADMISSION. HEART Score Response (Comments) Value Age: > 65yrs (+2) 2 Risk Factors: 3+ risk factors (+2) 2 Initial Troponin: Normal limit (0) 0 Total 4 Medical Decision Making MDM MDM: DIFFERENTIAL DIAGNOSIS: ACS/AMI/FLUID OVERLOAD/ELECTROLYTE IMBALANCE/DEHYDRATION/ARRHYTHMIA RATIONALE: TESTS CONSIDERED AND ORDERED SECONDARY TO SHARED DECISION MAKING INCLUDE: LABS, ECG AND RADIOLOGY PREVIOUS OUTSIDE RECORDS REVIEWED: OLD ER VISITS. REVIEWED RISK OF COMPLICATION AND/OR MORBIDITY OR MORTALITY OF PATIENT MANAGEMENT: [id number] MEDICATIONS-PER MEDICATION RECONCILIATION NEED FOR HOSPITALIZATION: PATIENT DOES MEET CRITERIA FOR HOSPITALIZATION. PATIENT WILL BE ADMITTED FOR CARDIOLOGY CONSULTATION AND MANAGEMENT NEED FOR EMERGENCY MAJOR/MINOR SURGERY: NO THERE ARE NO SOCIAL CONCERNS WITH THIS PATIENT. PRESCRIPTION DRUG MANAGEMENT PRESCRIPTIONS WILL INCLUDE SYMPTOMATIC CARE PATIENT'S PRIOR EXTERNAL MEDICAL RECORDS FROM OTHER ER VISITS WERE REVIEWED BY ME INDICATED. PRIOR TESTING AND RESULTS FROM PREVIOUS VISITS WERE REVIEWED. PRIOR TESTS WERE TAKEN INTO ACCOUNT WITH MEDICAL DECISION MAKING AND RESOURCE UTILIZATION, INDEPENDENT HISTORIAN/HISTORIANS WERE USED TO OBTAIN COMPLETE MEDICAL HISTORY. I INDEPENDENTLY INTERPRETED THE TEST THAT WERE PERFORMED, RESULTS WERE REVIEWED BY ME AND CONSIDERED FINDINGS ON RADIOLOGY IF ORDERED. MEDICAL MANAGEMENT AND EXAMINATION INTERPRETATION DISCUSSIONS WERE HAD BY ME WITH OTHER QUALIFIED HEALTHCARE PROFESSIONALS INDICATED FOR THE PATIENT'S CARE. DX & DISP Disposition: Inpatient Decision to Admit Time: 12:25 Departure Impression: Primary Impression: Supraventricular tachycardia, nonsustained Additional Impressions: Chronic anemia, Near syncope, Acute kidney injury, Hyponatremia, Acute UTI Condition: Stable Referrals: KE WASHINGTON MD (PCP) Time of Disposition: 12:25 I have reviewed the case, and I agree with, Diagnosis and Plan JOEY KISER NP Jul 03, 2024 11:09
[2024-07-03] MEDS: 0.9%NACL 1000ML 1,000 ML IV ONE (11:33)
[2024-07-03] MEDS: LACTATED RINGERS 1000ML 1,000 ML IV ONE (11:33)
[2024-07-03 11:37] LABS: BASOPHILS # (AUTO) 0.03 K/uL (0.00-0.20); BASOPHILS % (AUTO) 0.5 % (0.0-5.0); EOSINOPHILS # (AUTO) 0.11 K/uL (0.00-0.70); HEMATOCRIT 34.1 % (36-48); IMMATURE GRANULOCYTE ABSOLUTE 0.02 K/uL (0-1); LYMPHOCYTES # (AUTO) 0.9 K/uL (1.0-4.8); LYMPHOCYTES % (AUTO) 16.1 % (21.0-51.0); MEAN CORPUSCULAR HEMOGLOBIN 34.2 pg (27.0-33.0); MEAN CORPUSCULAR HGB CONC 33.7 g/dL (32.0-36.0); MEAN CORPUSCULAR VOLUME 101.5 fL (79-99); MONOCYTES # (AUTO) 0.5 K/uL (0.1-1.0); MONOCYTES % (AUTO) 9.1 % (3.0-13.0); NEUTROPHILS # (AUTO) 3.9 K/uL (1.8-7.7); NEUTROPHILS % (AUTO) 71.9 % (40.0-77.0); PLATELET COUNT (AUTO) 192 K/uL (130-400); RED BLOOD CELL COUNT(AUTO) 3.36 MIL/uL (4.00-5.50); WHITE BLOOD COUNT (AUTO) 5.5 K/uL (4.8-10.8)
[2024-07-03 11:47] LABS: CREATININE 1.2 mg/dL (0.5-1.0); POTASSIUM 4.8 mmol/L (3.5-5.1)
[2024-07-03 11:52] LABS: MAGNESIUM 1.8 mg/dL (1.80-2.40)
[2024-07-03 11:54] LABS: B-TYPE NATRIURETIC PEPTIDE 58 pg/mL (0-100)
[2024-07-03 12:02] LABS: INR 1.03 (0.85-1.15); PROTHROMBIN TIME 10.9 SEC (9.6-11.6)
[2024-07-03 12:03] LABS: PARTIAL THROMBOPLASTIN TIME 27.4 SEC (26.3-35.5)
--- NOTE | 2024-07-03 12:23 | NUR ---
pt observed having 15-20 second run of svt ranging 150-168 pt calm and in supine position no visable distress md notified riley lau and pt to be admitted ortho vitals cancelled per JR
--- NOTE | 2024-07-03 12:34 | HMCIMG ---
CHEST 1VW HISTORY: Syncope COMPARISON: 06/17/2024 FINDINGS: A frontal projection of the chest was obtained. No acute pulmonary infiltrates is seen. The heart is borderline enlarged. Degenerative changes are seen. Aortic calcifications are seen. IMPRESSION: 1. No acute pulmonary infiltrate is seen.
[2024-07-03 12:35] LABS: APPEARANCE,URINE CLEAR (CLEAR); BILIRUBIN,URINE NEGATIVE (NEGATIVE); COLOR,URINE LIGHT-YELLOW (YELLOW); GLUCOSE, URINE (UA) NEGATIVE (NEGATIVE); KETONES,URINE NEGATIVE (NEGATIVE); LEUKOCYTE ESTERASE ,URINE 250 Leu/uL (NEGATIVE); NITRATE,URINE NEGATIVE (NEGATIVE); OCCULT BLOOD,URINE NEGATIVE (NEGATIVE); PH,URINE 5.5 (5.0-8.0); PROTEIN,URINE NEGATIVE (NEGATIVE); UROBILINOGEN,URINE 0.2 mg/dL (0.2-1.0)
[2024-07-03 12:48] LABS: ADD UA MICROSCOPIC YES
[2024-07-03 12:51] LABS: RBC,URINE 0-1 /HPF (0-1); SQUAMOUS EPITHELIAL CELL,UR RARE /HPF (0-2)
--- NOTE | 2024-07-03 12:52 | EKG ---
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
[2024-07-03 13:08] LABS: BACTERIA,URINE None Seen /HPF (None Seen)
[2024-07-03] MEDS: cefTRIAXone 1G VIAL IVP ONE (13:23)
[2024-07-03] MEDS ORDERED: polyETHYLene GLYCol 3350 17 GM POWD.PACK PO PRN (13:30)
[2024-07-03] MEDS ORDERED: cefTRIAXone 1G VIAL IVPB ONE (14:00)
--- NOTE | 2024-07-03 14:12 | NUR ---
TRANSFERED CARE TO [facility] AT THIS TIME
[2024-07-03 14:19] LABS: MAGNESIUM 1.8 mg/dL (1.80-2.40)
[2024-07-03] MEDS: metoPROLOL tartRATE 1 MG/ML 5ML VIAL IV ONE (15:08)
[2024-07-03 15:13] LABS: ABG BASE EXCESS -4.4 mmol/L (-2.0-3.0); ABG HCO3 20.4 mmol/L (21.0-28.0); ABG OXYGEN SATURATION 81.5 % (94.0-98.0); ABG PCO2 37 mmHg (32-45); ABG PH 7.358 (7.350-7.450); VENT MODE, BG RA (ROOM AIR)
[2024-07-03] MEDS ORDERED: FOLI0.8C PO (15:25)
[2024-07-03] MEDS ORDERED: CARV25TA PO (15:25)
[2024-07-03] MEDS ORDERED: OMEP40CA21 PO (15:25)
[2024-07-03] MEDS ORDERED: ALEN70TA80 PO (15:25)
[2024-07-03] MEDS ORDERED: CLOP-31 PO (15:25)
--- NOTE | 2024-07-03 15:26 | NUR ---
HOME MEDICATION PLACED IN SYSTEMN, PENDING TO BE RENIEWED BY PHYSICIAN.
[2024-07-03] MEDS ORDERED: MAGNESIUM 2GM PREMIX 50ML 50 ML IV PRN (15:30)
--- NOTE | 2024-07-03 15:42 | NUR ---
CALLED MRS. HIGGINBOTHAM TO NOTIFY HER ABOUT PATIENTS HEART RATE AND BLOOD PRESSURE. BLOOD PRESSURE 200/100 MMHG AND PULSE OF 140s. NO NEW ORDERS. ALSO NOTIFY HER OF PATIENT D-DIMER 774.
--- NOTE | 2024-07-03 15:58 | HP ---
[facility] HISTORY & PHYSICAL Date Patient Seen: Jul 03, 2024 Time of Visit: 15:08 Supervising Physician: Ross Alatorre MD Primary Care Physician: DR Slim Toney MD Outpatient Specialists: Inpatient Consults: Dr Ferrell Attending physician: Ross Hoover MD PROBLEM LIST: Syncope episode POA Elevated D-dimer pending PE rule out SVT, POA Acute cystitis POA Macrocytic and hyperchromic anemia POA Anxiety Essential hypertension Hyperlipidemia CAD status post recent left heart catheterization with drug-eluting stent placements to LAD on 06/20/24 Moderate hepatic steatosis GERD CKD stage 3 Osteoporosis Left nephrectomy Single right kidney Previous COVID infection Prior GI bleed History of prior syncopal episodes Current smoker Normal carotid ultrasound duplex on 05/08/24 EF 55-60% on 2D echo March 2024 HPI: This is a 79-year-old female current smoker with a past medical history of essential hypertension, hyperlipidemia, CAD with recent left heart catheterization and stent placement to the LAD on 06/20/24, GERD, osteoporosis, left neck nephrectomy, single kidney, previous COVID infection, prior GI bleed and prior syncopal episodes who presented to the ED for evaluation of generalized body weakness and syncope episode. As per patient she was at the store shopping and felt like she was going to pass out so she resident in a chair. Moments later she reports she blacked out and was helped to the floor per family. She presented to the ED for evaluation of syncope and generalized body weakness. In the ED CBC resulted with a H&H of 11.5/34.1, on chemistries sodium 133 chloride 100 creatinine 1.2 GFR of 49. UA did show leukocyte esterase of 250 and WBCs of 11 to 25 consistent with an acute cystitis. Coags within normal limits. Per ED provider once patient was evaluated for orthostatic vitals prior to standing her up patient developed spontaneous SVT and heart rate went up to the 170s. At the time of my assessment patient's heart rate was 130 appeared sinus tachycardia on the monitor. On chest x-ray no acute pulmonary infiltrates are seen. Pending repeat EKG PAST MEDICAL HX: see above PAST SURGICAL HX: noncontributory SOCIAL HISTORY: No tobacco, ETOH, or illicit drug use Coded Allergies: No Known Allergies (Unverified Allergy, Unknown, 08/20/15) REVIEW OF SYSTEMS: General: No malaise or fever. Neurological: Reports syncope episode prior to arrival. HEENT: No nasal congestion or nasal secretion. Respiratory: Yes to wheezes. Cardiac: No chest pain or palpitations. Gastrointestinal: No vomiting or diarrhea. Genitourinary: No dysuria hematuria. Skin: No rashes or lesions. Hematological: No bruises or bleeding. Musculoskeletal: No joint pains or arthralgias. Psychiatric: No depression or panic attacks. PHYSICAL EXAM: GENERAL: alert, weak, awake oriented x 3 HEENT: EOMI, Sclera non icteric, moist mucosa NECK: Supple, no JVD, trachea midline LUNGS: Wheezes to bilateral upper and lower extremities. HEART: Regular rate and rhythm. Normal S1 and S2, without murmurs ABD: Abdomen soft, nontender. Bowel sounds present EXT: No clubbing cyanosis or edema NEURO: Alert and oriented to person, follows commands Vital Signs (last 8hr) Date Time Temp Pulse Resp B/P (MAP) Pulse Ox O2 Delivery O2 Flow Rate FiO2 07/03/24 13:17 98.2 64 16 153/78 98 Room Air* 0 21 07/03/24 11:37 98.2 65 16 116/65 98 Room Air* 0 21 07/03/24 11:04 75 20 91/57 99 0 LABS: Hematology Labs: Test 07/03/24 11:26 Range/Units White Blood Count 5.5 4.8-10.8 K/uL Red Blood Count 3.36 L 4.00-5.50 MIL/uL Hemoglobin 11.5 L 12.0-16.0 g/dL Hematocrit 34.1 L 36-48 % Mean Corpuscular Volume 101.5 H 79-99 fL Mean Corpuscular Hemoglobin 34.2 H 27.0-33.0 pg Mean Corpuscular Hemoglobin Concent 33.7 32.0-36.0 g/dL Red Cell Distribution Width 13.0 11.0-15.5 % Platelet Count 192 130-400 K/uL Mean Platelet Volume 9.6 7.5-10.5 fL Immature Granulocyte % (Auto) 0.4 0-1 % Neutrophils (%) (Auto) 71.9 40.0-77.0 % Lymphocytes (%) (Auto) 16.1 L 21.0-51.0 % Monocytes (%) (Auto) 9.1 3.0-13.0 % Eosinophils (%) (Auto) 2.0 0.0-8.0 % Basophils (%) (Auto) 0.5 0.0-5.0 % Neutrophils # (Auto) 3.9 1.8-7.7 K/uL Lymphocytes # (Auto) 0.9 L 1.0-4.8 K/uL Monocytes # (Auto) 0.5 0.1-1.0 K/uL Eosinophils # (Auto) 0.11 0.00-0.70 K/uL Basophils # (Auto) 0.03 0.00-0.20 K/uL Absolute Immature Granulocyte (auto 0.02 0-1 K/uL Nucleated Red Blood Cells 0.0 0.0-0.19 % Chemistry Labs: Test 07/03/24 13:58 07/03/24 11:26 Range/Units Lactic Acid Level 1.3 0.8-2.5 mmol/L Ionized Calcium 1.17 1.15-1.33 MMOL/L Magnesium Level 1.80 1.80-2.40 mg/dL Total Creatine Kinase 86 21-232 U/L Troponin I High Sensitivity 4.8 4-50 ng/L Procalcitonin 0.08 0.05-0.5 ng/mL Sodium Level 133 L 136-145 mmol/L Potassium Level 4.8 3.5-5.1 mmol/L Chloride Level 100 L 101-111 mmol/L Carbon Dioxide Level 23 21-32 mmol/L Blood Urea Nitrogen 15 7-18 mg/dL Creatinine 1.2 H 0.5-1.0 mg/dL Glomerular Filtration Rate Calc 49 >90 mL/min Random Glucose 91 70-105 mg/dL Total Calcium 8.6 8.5-10.1 mg/dL B-Type Natriuretic Peptide 58 0-100 pg/mL Coagulation Labs: Test 07/03/24 11:26 Range/Units Prothrombin Time 10.9 9.6-11.6 SEC Prothromb Time International Ratio 1.03 0.85-1.15 Activated Partial Thromboplast Time 27.4 26.3-35.5 SEC DIAGNOSTICS / RADIOLOGY RESULTS: [ ] IMAGING REPORT Signed PATIENT: VIRI FINCH MR#: [id number] : 1955 SEX: F AGE: 68 LOCATION: [facility] ORDER 08 STATUS: REG ER REPORT#: [id number] SERVICE 03 REASON: syncope ORDERING PHYSICIAN: GLYNN POWELL MD PROCEDURE: CXR1VW - CHEST 1VW CHEST 1VW HISTORY: Syncope COMPARISON: 06/17/2024 FINDINGS: A frontal projection of the chest was obtained. No acute pulmonary infiltrates is seen. The heart is borderline enlarged. Degenerative changes are seen. Aortic calcifications are seen. IMPRESSION: 1. No acute pulmonary infiltrate is seen. DICTATED BY: MICHELA CONNOR MD DATE: 07/03/24 1231 ELECTRONICALLY SIGNED BY: MICHELA CONNOR MD DATE: 07/03/241233 PLAN Admit to PCCU Rule out PE with a V/Q scan, and 2D echo Avoid nephrotoxic medication due to patient with one kidney and CKD stage 3 CT of the head rule out intracranial bleed, CVA if negative consider MRI of the brain Carotid ultrasound done on April of 2024 with normal results. 2D echo to rule out thrombus EEG rule out seizure Cardiac monitoring Repeat EKG Metoprolol 5 mg IV push now Hydralazine PRN for hypertension Resume patient's home medications which include Plavix, aspirin and carvedilol Thiamine and folic acid with multivitamin for macrocytic and hyperchromic anemia Rocephin 2 g IV Q 24 hours for acute cystitis Urine culture Cardiology -consult Dr Ferrell due to tachycardia and syncope episode Monitor cardiac enzymes D-dimer elevated Venous ultrasound NEURO: Minimize central acting medications as possible. Maintain fall precautions, adequate lighting during the day PULMONARY: Supplemental 02 as needed. Maintain aspiration precautions at all times CARDIOVASCULAR: Follow hemodynamics. Vital signs per facility protocol GI & NUTRITION: Continue with nutritional support. Continue stool softeners and laxatives as needed. KIDNEYS & ELECTROLYTES: Strict monitoring of intake, output and overall fluid balance. Avoid nephrotoxic medications to the extent possible. Medications to be dosed according to renal function. Monitor electrolytes and replace as needed ENDOCRINE: Maintain blood glucose between 100-180 at all times. Hypoglycemia protocol in place INFECTIOUS DISEASE: Trend temperature, WBC and procalcitonin level Follow cultures, deescalate antibiotics as soon as possible. Panculture if new onset fever ONCOLOGY/HEMATOLOGY/COAGULATION: Monitor for s/s of bleeding Monitor hemoglobin, coagulation studies as needed SKIN: Pressure ulcer prevention per facility protocol Specialty mattress ORTHO/REHAB: Continue PT/OT Prophylaxis: Continue GI and DVT prophylaxis Code Status: Full Resuscitation Disposition: TBD Other: Total patient care time exceeds 35 minutes excluding all procedures. ATTESTATION BY PHYSICIAN I attest that I reviewed and discussed the case with the Physician Helicopter Crew Chief as well as agree with the Physician Helicopter Crew Chief's findings, plans of care, and documentation above. Ross Welch MD, [facility] Jul 03, 2024 15:58
[2024-07-03] MEDS ORDERED: ondanSETRON 4MG INJ IV PRN (16:00)
[2024-07-03] MEDS ORDERED: ALPRAZolam 0.5 MG TABLET PO ONE (16:00)
[2024-07-03] MEDS ORDERED: PROMETHAZINE HCL 25 MG TABLET PO PRN (16:00)
[2024-07-03] MEDS ORDERED: PHARMACY COMMUNICATION MISC PRN (16:00)
[2024-07-03] MEDS ORDERED: chlordiazePOXIDE HCL 25 MG CAP PO PRN ×2 (16:00)
--- NOTE | 2024-07-03 16:00 | CONS ---
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, active smoker with COPD, remote history of intestinal bleeding, status post coil embolization by IR with no recurrence, history of recurrent syncope, 2D echo on 04/07/2024 with an EF of 55-60% with normal LV segmental wall motion, Lexiscan stress test on 05/09/2024 with global hypokinesis most marked in the inferoapical segments with rest and stress images showing normal perfusion and LVEF of 34%, LHC on 06/20/2024 demonstrated severe LAD stenosis in the proximal segment, moderate OM1 stenosis, nonobstructive RCA stenosis, preserved LV systolic function with EF of 60%, successful shockwave lithotripsy of the LAD with a 3 x 15 balloon and placement of a 3.5 x 18 drug-eluting stent [place] post dilated with a 3.5 NC balloon to 3.52 size at 16 atmospheres with good results who presented to the ED with complaints of near-syncope. On arrival the patient's blood pressure was found to be decreased at 91/57 mmHg. Bedside nurse witnessed SVT with heart rates of 150 to 160s for approximately 15-20 seconds. Potassium of 4.8. Mag nesium of 1.8. Cardiac enzymes negative x2. CK negative x2. D-dimer is elevated at 774. Past Medical History: [ ] Past Surgical History: [ ] Family History: [ ] Social History: [ ] Habits: [Never] smoker. [Denies] alcohol consumption. [Denies] illicit drug use Home Meds: [ ] Current Meds: [ ] Review of Systems: CONST: [No fever, fatigue, or weight changes.] EYES: [No recent vision problems.] ENT: [No congestion, ear pain, or sore throat.] C/V: [No chest pain, palpitations, or edema.] RESP: [No cough, congestion, wheezing or shortness of breath.] GI: [No abdominal pain, nausea, vomiting, constipation, or diarrhea.] : [No incontinence or dysuria.] SKIN: [No rash.] NEURO: [No headache, focal numbness or weakness, dizziness, or seizures.] PSYCH: [No depression or anxiety.] HEME: [No abnormal bruising or bleeding.] LYMPH: [No swollen glands.] Physical Examination: GENERAL: [No acute distress.] HEAD: [Normal with no signs of head trauma.] EYES: [PERRLA, EOMI, conjunctiva and sclera normal.] ENT: [Hearing grossly intact, normal oropharynx.] NECK: [Supple without JVD. There is no tenderness, lymphadenopathy, or masses. No thyromegaly. Normal carotid upstrokes without bruits.] LUNGS: [Clear breath sounds bilaterally. No wheezes, or rhonchi.] HEART: [Normal rate and rhythm. Normal S1 and S2 without mumurs, gallop or rub.] VASC: [Peripheral pulses +2 bilaterally.] ABD: [Bowel sounds normal, soft, nontender, no masses, no organomegaly. No audible bruits.] : [Not examined] LYMPH: [No lymphadenopathy noted.] EXT: [No clubbing, cyanosis or edema.] SKIN: [No rashes or lesions noted.] NEURO: [Awake, alert, and oriented x3. No focal sensory or strength deficits noted.] Vital Signs (last 8hr) Date Time Temp Pulse Resp B/P (MAP) Pulse Ox O2 Delivery O2 Flow Rate FiO2 07/03/24 15:08 146 159/100 07/03/24 13:17 98.2 64 16 153/78 98 Room Air* 0 21 07/03/24 11:37 98.2 65 16 116/65 98 Room Air* 0 21 07/03/24 11:04 75 20 91/57 99 0 Laboratory: [ ] Hematology Labs: Test 07/03/24 11:26 Range/Units White Blood Count 5.5 4.8-10.8 K/uL Red Blood Count 3.36 L 4.00-5.50 MIL/uL Hemoglobin 11.5 L 12.0-16.0 g/dL Hematocrit 34.1 L 36-48 % Mean Corpuscular Volume 101.5 H 79-99 fL Mean Corpuscular Hemoglobin 34.2 H 27.0-33.0 pg Mean Corpuscular Hemoglobin Concent 33.7 32.0-36.0 g/dL Red Cell Distribution Width 13.0 11.0-15.5 % Platelet Count 192 130-400 K/uL Mean Platelet Volume 9.6 7.5-10.5 fL Immature Granulocyte % (Auto) 0.4 0-1 % Neutrophils (%) (Auto) 71.9 40.0-77.0 % Lymphocytes (%) (Auto) 16.1 L 21.0-51.0 % Monocytes (%) (Auto) 9.1 3.0-13.0 % Eosinophils (%) (Auto) 2.0 0.0-8.0 % Basophils (%) (Auto) 0.5 0.0-5.0 % Neutrophils # (Auto) 3.9 1.8-7.7 K/uL Lymphocytes # (Auto) 0.9 L 1.0-4.8 K/uL Monocytes # (Auto) 0.5 0.1-1.0 K/uL Eosinophils # (Auto) 0.11 0.00-0.70 K/uL Basophils # (Auto) 0.03 0.00-0.20 K/uL Absolute Immature Granulocyte (auto 0.02 0-1 K/uL Nucleated Red Blood Cells 0.0 0.0-0.19 % Chemistry Labs: Test 07/03/24 13:58 07/03/24 11:26 Range/Units Lactic Acid Level 1.3 0.8-2.5 mmol/L Ionized Calcium 1.17 1.15-1.33 MMOL/L Magnesium Level 1.80 1.80-2.40 mg/dL Total Creatine Kinase 86 21-232 U/L Troponin I High Sensitivity 4.8 4-50 ng/L Procalcitonin 0.08 0.05-0.5 ng/mL Sodium Level 133 L 136-145 mmol/L Potassium Level 4.8 3.5-5.1 mmol/L Chloride Level 100 L 101-111 mmol/L Carbon Dioxide Level 23 21-32 mmol/L Blood Urea Nitrogen 15 7-18 mg/dL Creatinine 1.2 H 0.5-1.0 mg/dL Glomerular Filtration Rate Calc 49 >90 mL/min Random Glucose 91 70-105 mg/dL Total Calcium 8.6 8.5-10.1 mg/dL B-Type Natriuretic Peptide 58 0-100 pg/mL Coagulation Labs: Test 07/03/24 13:58 07/03/24 11:26 Range/Units D-Dimer Quantitative (PE/DVT) 774 *H 0-500 ng/mL Prothrombin Time 10.9 9.6-11.6 SEC Prothromb Time International Ratio 1.03 0.85-1.15 Activated Partial Thromboplast Time 27.4 26.3-35.5 SEC Diagnostics / Radiology: [Copy/Paste Echos/Imaging Report here] Impression and Plan: [ ] ZAYNAB DUPONT PRINCIPAL CLERK Jul 03, 2024 16:00
[2024-07-03] MEDS: ALPRAZolam 0.5 MG TABLET PO ONE (16:12)
[2024-07-03] MEDS: carVEDIlol 25 MG TABLET PO SCH (16:12)
--- NOTE | 2024-07-03 16:20 | CONS ---
[facility] Cardiology Consultation Note CARDIOLOGY CONSULTATION JUNE [id number] Chief complaint: This is a 68-year-old female who presents with syncope. History of present illness: Patient has been running some low blood pressures and her primary physician reduced her carvedilol to 12.5 mg twice a day. Two weeks ago she underwent stenting of the mid LAD. Yesterday she was in the office saw the physician histology assistant. At that time blood pressures and heart r ates were elevated and she was told to increase her carvedilol back to 25 mg b.i.d.. She took a dose last night and again one this morning. She drove to a restaurant and in the parking lot when she got out of the car she became extremely dizzy and had a near fainting spell and sat down. Her was there at the time and watched her for three or 4 minutes. When she got up she again felt lightheaded and dizzy and lost consciousness for a few seconds. He had to catch her and sitter to back down on the ground. By the time she sat down she was awake again. There was no seizure activity no incontinence of stool and urine. She was oriented to person place and time as soon as she woke up. Initial blood pressure was reported to be 78 systolic current blood pressure is now up to 91 systolic. Past medical history: She has a history of hypertension dyslipidemia coronary artery disease as above. Review of systems: She denies chest pain PND orthopnea palpitations or pedal edema. No fevers sweats or chills. No hemoptysis hematemesis or melena. Allergies: No known allergies Medications: Clopidogrel 75 mg daily aspirin 81 mg daily carvedilol recently increased to 25 mg b.i.d. alendronate 70 mg pantoprazole 40 mg 1/2 tablets daily rosuvastatin 20 mg daily duloxetine 30 mg daily. Surgical history: The patient has had three C sections left kidney surgery bilateral knee surgery intestinal surgery open reduction and fixation of the right shoulder and proximal humerus for fracture cervical spine surgery and now a stent in the mid LAD Social history: She is a nonsmoker occasional drinker Physical exam: Blood pressure was initially 90 systolic Garcia to 159/100 heart rate was in the 60s the patient is afebrile. There was no elevation of jugular venous pressure no bruits are heard S1 normal S2 physiologically split. No murmur or gallop appreciable. Abdomen is obese soft nontender. Extremities show no edema. She is alert and oriented Laboratory studies: White count 5.5 hemoglobin 11.5 platelet count is [id number] potassium 4.8 BUN 15 creatinine 1.2 be estimated GFR of 49. Troponins were five and 4.8. D-dimer test was elevated 774 Assessment: 1. Syncope most likely related to hypotension however D-dimer is elevated pulmonary embolism needs to be considered 2. CAD status post recent stenting of the mid LAD two weeks ago with normal troponins x2 and no history of chest pain 3. Hypertension 4. Dyslipidemia Plan: This point I would recommend hydration and proceeding with a CT pulmonary angiogram with PE protocol. In addition 2D echo will be used to assess RV size and function. We will hold her carvedilol medication. We will continue with aspirin and clopidogrel and we can substitute atorvastatin for her rosuvastatin which is non formulary at the hospital. If the CT pulmonary angiogram can not be completed today I would recommend starting heparin protocol in the interim NO LANDEROS MD Jul 03, 2024 16:19
[2024-07-03 16:37] LABS: AMPHET/METH SCREEN,URINE NEGATIVE (NEGATIVE); BARBITURATE SCREEN, URINE NEGATIVE (NEGATIVE); BENZODIAZEPINES SCREEN,URINE NEGATIVE (NEGATIVE); CANNABINOID SCREEN,URINE NEGATIVE (NEGATIVE); COCAINE SCREEN,URINE NEGATIVE (NEGATIVE); OPIATE SCREEN,URINE NEGATIVE (NEGATIVE); PHENCYCLIDINE SCREEN,URINE NEGATIVE (NEGATIVE)
[2024-07-03] MEDS: 0.9%NACL 1000ML 1,000 ML IV SCH (16:55)
[2024-07-03] MEDS ORDERED: IOHEXOL-350 75 ML VIAL IV ONE (16:58)
--- NOTE | 2024-07-03 16:59 | NUR ---
OBTAINED SWAB SAMPLES AND URINE SAMPLE.
--- NOTE | 2024-07-03 17:06 | HMCIMG ---
US VENOUS DOPPLER BILATERAL HISTORY: Swelling COMPARISON: None TECHNIQUE: Bilateral lower extremity venous Doppler ultrasound study was performed. FINDINGS: The common femoral, femoral, popliteal, and posterior tibial veins are visualized. Normal flow with augmentation and compressibilities are demonstrated. The greater saphenous veins are also seen and grossly patent. IMPRESSION: 1. No evidence of deep venous thrombosis is seen.
[2024-07-03 17:28] LABS: COVID19 (SARS ANTIGEN RAPID) PRESUMPTIVE NEGATIVE (NEGATIVE); INFLUENZA TYPE A Negative For Type A (NEGATIVE); INFLUENZA TYPE B Negative For Type B (NEGATIVE)
--- NOTE | 2024-07-03 17:28 | HMCIMG ---
CT angiogram chest CLINICAL INDICATION: syncope, elevated D-dimer COMPARISON: CT chest May 08, 2024. CT Dose Index (CTDI): 113.50 mGy Dose Length Product (DLP): 1408.10 total mGy PROTOCOL: Contrast: 100 cc of Isovue-370, injected IV, no complications Examination is done at 2.5 millimeter volumetric acquisition after contrast administration. Photography is done at 5 millimeter thick intervals for the thorax. FINDINGS: There is no evidence of pulmonary embolism. The airway is intact. The trachea and major bronchi are unremarkable. No pulmonary infiltrates or mass lesions are seen. Stable bilateral apical fibrotic changes are seen. No pleural effusions are identified. The exam of the roldan and mediastinum is unremarkable. No evidence of hilar enlargement is seen. The aorta shows no aneurysmal dilatation or significant atheromatous calcification. There is no thoracic aortic dissection. No significant brachiocephalic vascular abnormalities are seen. The heart is unremarkable. It is not enlarged. No significant coronary arterial calcifications are seen. There is no pericardial effusion. The rib cage appears unremarkable. The soft tissues of the chest wall are unremarkable. The dorsal spine shows no significant abnormalities. Limited evaluation of the upper abdomen demonstrates no gross abnormalities. IMPRESSION: No evidence of pulmonary embolism. This study was performed using dose reduction techniques to include automated exposure control and/or adjustment of the mA and/or kV according to patient size.
--- NOTE | 2024-07-03 17:30 | NUR ---
WEIGHTED PATIENT ,85.2 KG. CONFIRMED WITH MRS. BARLOW (PHARMACIST) BOLUS AMOUNT TO BE GIVEN TO PATIENT, FOLLOWED HEPARIN DRIP PER HOSPITAL PROTOCOL WITH MRS. JOLLEY RN FOR MY WITNESS. HEPARIN DRIP STARTED. PATIENT TO BE TRANSFERED TO ROOM 220 PCCU. GAVE REPORT TO MRS. SIMPSON.
--- NOTE | 2024-07-03 17:33 | HMCSR ---
APPROVED REPORT EXAM: Two-dimensional and M-mode echocardiogram with Doppler and color Doppler. INDICATION ICD: Rule out thrombus formation 2D Dimensions RVDd3.2 cmLVEF(%)67.4 (>50%)LVED Vol(simp.)67.1 mL IVSd1.0 (0.7-1.1cm)FS(%)38 %LVES Vol(simp.)26.0 mL LVDd4.9 (3.8-5.6cm)LA (2D)4.2 (1.6-4.0cm)LVEF(%, simp.)61 % PWd1.1 (0.7-1.1cm)Ao Root(2D)3.4 (2.0-3.7cm)LA ESV INDEX (BP)26.92 mL/m2 IVSs1.5 cmLVOT diam2.1 (1.8-2.4cm) LVDs3.1 (2.5-4.0cm)IVC diam1.9 cm PWs1.2 cm M-Mode Dimensions EPSS1.1 cm LA (MM)3.6 (1.6-4.0cm) Ao Root(MM)3.6 (2.0-3.7cm) Aortic Valve AoV Vmax1.3 m/Luis Peak GR6.8 mmHgLVOT Vmax1.1 m/s AoV VTI0.3 mAo Mean GR3.9 mmHgLVOT VTI0.25 m SABA (VMAX)3.01 cm2AVA (VTI) 3.0 cm2 Mitral Valve MV E Vmax81.3 cm/sDECEL Jbaq190 ms MV A Xpir354.2 cm/sP 1/2 T62 ms E/A ratio0.8MVA (PHT)3.5 cm2 TDI E/E' Psnfnw13.0E/E' Uvawfvx37.8 Medial E' Peak V6.77 cm/sLateral E' Peak V7.52 cm/s Pulmonary Valve PV Vmax0.7 m/sPV Mean GR1.3 mmHg PV Peak GR2.2 mmHg Tricuspid Valve RAP (EST) 3 mmHgRVSP3.0 mmHg Left Ventricle The left ventricle is normal size. There is normal LV segmental wall motion. There is normal left larry tricular wall thickness. LVEF is 60-65%. No left ventricle thrombus noted on this study. Stage I de dios tolic dysfunction. Right Ventricle The right ventricle is normal size. No thrombus noted right ventricle. The right ventricular systolic function is normal. Atria The left atrium size is normal. The right atrium size is normal. Aortic Valve The aortic valve is normal in structure. Trivial aortic regurgitation is present. There is no aortic valvular stenosis. Mitral Valve The mitral valve is normal in structure. There is trace of mitral valve regurgitation noted. There is no mitral valve stenosis. Tricuspid Valve The tricuspid valve is normal in structure. There is trace of tricuspid valve regurgitation noted. Pulmonic Valve The pulmonary valve is normal in structure. There is no pulmonic valvular regurgitation. Great Vessels The aortic root is normal in size. The IVC is normal in size and collapses >50% with inspiration. Pericardium There is no pericardial effusion. Other Information Quality : Technically difficult study due to body habitus Conclusion LVEF is 60-65%. The right ventricle is normal size. No thrombus noted right ventricle. The right ventricular systolic function is normal. Trivial aortic regurgitation is present. There is trace of mitral valve regurgitation noted. There is trace of tricuspid valve regurgitation noted.
--- NOTE | 2024-07-03 17:34 | HMCIMG ---
Exam Type: CT HEAD/BRAIN W/O CONTRAST Clinical Information: rule out cva Comparison: None CT Dose Index (CTDI): 57.33 mGy Dose Length Product (DLP): 956.79 total mGy-cm Findings: There is low attenuation throughout the periventricular white matter locations, consistent with chronic small vessel ischemic changes. No acute intra- or extra-axial fluid collections are seen. There is no evidence of acute or chronic hemorrhage. There is no mass effect or shift of midline structures. There are no areas to suggest acute infarct. The skull windows show no significant abnormalities. IMPRESSION: 1. CHRONIC SMALL VESSEL ISCHEMIC CHANGES.
[2024-07-03] MEDS: HEParin 5,000 UNIT VIAL IV PRN (17:49)
[2024-07-03] MEDS: HEParin 25,000 UNITS/250ML D5W 250 ML IV SCH (17:52)
[2024-07-03 18:25] VITALS: BP 160/69; PULSE 90; RESP 19; TEMP 97.9
[2024-07-03 18:58] VITALS: BP 164/86; PULSE 81; RESP 16; TEMP 98.2
[2024-07-03] MEDS: BUDESONIDE 0.5 MG/2 ML INH IH SCH (19:08)
[2024-07-03] MEDS: IpraTROPium 0.5 MG/2.5 ML INH IH ONE (19:08)
[2024-07-03] MEDS: IpraTROPium 0.5 MG/2.5 ML INH IH SCH (19:08)
[2024-07-03 19:11] VITALS: PULSE 72; RESP 18
[2024-07-03 19:12] VITALS: PULSE 72; RESP 18; O2SAT 99
[2024-07-03 20:00] VITALS: O2SAT 94
[2024-07-03] MEDS: hydrALAZine 20MG/ML VIAL IV PRN (20:36)
[2024-07-03] MEDS: acetaMINOPHEN 500 MG TABLET PO PRN (21:07)
[2024-07-03] MEDS: TIZANIDINE HCL 2 MG TABLET PO PRN (21:07)
[2024-07-03 23:12] VITALS: BP 129/67; PULSE 97; RESP 16; TEMP 98.4
[2024-07-04 01:21] LABS: HEMOGLOBIN A1C 5.8 % (4.0-6.0)
[2024-07-04 03:29] VITALS: BP 131/84; PULSE 86; RESP 16; TEMP 98.2
[2024-07-04 04:32] LABS: ALBUMIN 3.4 g/dL (3.5-5.0); BILIRUBIN,TOTAL 0.4 mg/dL (0.2-1.0); POTASSIUM 3.8 mmol/L (3.5-5.1); TOTAL PROTEIN, SERUM 6.4 g/dL (6.0-8.3)
[2024-07-04 06:44] VITALS: PULSE 85; RESP 18
[2024-07-04 06:48] VITALS: PULSE 84; RESP 18; O2SAT 98
--- NOTE | 2024-07-04 07:32 | PN ---
[facility] Cardiology Progress Note CARDIOLOGY PROGRESS NOTE JULY 04, 2024 Problems: 1. Brief episode of syncope associated with hypotension 2. Elevated D-dimer 3. CAD status post recent stenting of the mid LAD two weeks ago with normal troponins x2 this admission 4. Hypertension 5. Dyslipidemia 6. Chronic kidney disease stage IIIA Blood pressure is running 130 systolic heart rate is in the 80s. The patient is afebrile. CT pulmonary angiogram showed no evidence of pulmonary embolism. There was no pericardial effusion. The patient has been hydrated. Potassium is 3.2 BUN13 creatinine 1.0 and GFR is improved to 61. The patient has been on carvedilol 5 mg b.i.d. but because of low blood pressures her primary physician had reduced her dose to 12.5 mg b.i.d.. In the office today for admission she was found to be hypertensive and her carvedilol dose was increased. She took two doses and this was followed by her syncopal spell and hypotension. Would suggest that her carvedilol dose be reduced back to 12.5 mg b.i.d.. From a cardiovascular standpoint she can be discharged home. She can follow up with Dr. Ferrell next week. The patient has been symptom free overnight she has had no arrhythmias. My standpoint she can be discharged home. She was scheduled for an EEG but this is not appear to be consistent with a seizure. There was no in continence she had no postictal phase witnessed no syncope and she was unresponsive for a few seconds. If she has recurrent episodes in the future an EEG could be done as an outpatient. I do not she needs to remain in the hospital for this study. NO LANDEROS MD Jul 04, 2024 07:32
[2024-07-04 07:48] VITALS: BP 160/97; PULSE 77; RESP 20; TEMP 97.7
[2024-07-04 08:00] VITALS: O2SAT 98
[2024-07-04] MEDS ORDERED: ENOXAPARIN SODIUM 30 MG/0.3 ML SQ SCH (09:00)
[2024-07-04] MEDS ORDERED: cloPIDOgrel 75MG TAB PO SCH (09:00)
[2024-07-04] MEDS ORDERED: ASPIRIN 81 MG EC TAB PO SCH (09:00)
[2024-07-04] MEDS ORDERED: PANTOPrazole 40 MG TAB DR PO SCH ×2 (09:00)
[2024-07-04] MEDS ORDERED: FOLic ACID 1 MG TABLET PO SCH (09:00)
[2024-07-04] MEDS: THIAMINE HCL 100 MG/ML 2ML VIAL IVP SCH (09:36)
[2024-07-04] MEDS: MULTIVITAMIN TABLET PO SCH (09:37)
[2024-07-04] MEDS: CEFTRIAXONE 2GM VIAL IVPB SCH (09:37)
[2024-07-04] MEDS: cloPIDOgrel 75MG TAB PO SCH (09:37)
[2024-07-04] MEDS: atorVAStatin 40 MG TABLET PO SCH (09:37)
[2024-07-04] MEDS: FOLic ACID 1 MG TABLET PO SCH (09:38)
[2024-07-04] MEDS: ASPIRIN 81MG CHEW TAB PO SCH (09:38)
[2024-07-04] MEDS: PANTOPrazole 40 MG TAB DR PO SCH (09:38)
--- NOTE | 2024-07-04 10:04 | EKG ---
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
--- NOTE | 2024-07-04 10:05 | EKG ---
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
--- NOTE | 2024-07-04 10:05 | EKG ---
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
[2024-07-04 12:00] VITALS: BP 153/72; PULSE 78; RESP 20; TEMP 98.6
--- NOTE | 2024-07-04 13:56 | NUR ---
DISCHARGE HOME IV, ID BANDS AND TELEPAK REMOVED. DISCHARGE INSTRUCTIONS GIVEN AND EXPLAINED TO PATIENT. PATIENT WHEELED DOWN TO PRIVATE CAR.
--- NOTE | 2024-07-04 20:59 | DS ---
[facility] DISCHARGE SUMMARY Date Patient Seen: Jul 04, 2024 Time of Visit: 20:45 Supervising Physician: Ross Alatorre MD Primary Care Physician: DR Slim Toney MD Outpatient Specialists: Inpatient Consults: Dr Ferrell Attending physician: Ross Hoover MD PROBLEM LIST: Syncope episode POA Elevated D-dimer pending PE ruled out SVT, POA, resolved Acute cystitis POA Ruled out per culture Macrocytic and hyperchromic anemia POA Dehydration POA Anxiety improved Essential hypertension Hyperlipidemia CAD status post recent left heart catheterization with drug-eluting stent placements to LAD on 06/20/24 Moderate hepatic steatosis GERD CKD stage 3 Osteoporosis Left nephrectomy Single right kidney Previous COVID infection Prior GI bleed History of prior syncopal episodes Current smoker Normal carotid ultrasound duplex on 05/08/24 EF 55-60% on 2D echo March 2024 HOSPITAL COURSE: HPI his is a 79-year-old female current smoker with a past medical history of essential hypertension, hyperlipidemia, CAD with recent left heart catheterization and stent placement to the LAD on 06/20/24, GERD, osteoporosis, left neck nephrectomy, single kidney, previous COVID infection, prior GI bleed and prior syncopal episodes who presented to the ED for evaluation of generalized body weakness and syncope episode. As per patient she was at the store shopping and felt like she was going to pass out so she resident in a chair. Moments later she reports she blacked out and was helped to the floor per family. She presented to the ED for evaluation of syncope and generalized body weakness. In the ED CBC resulted with a H&H of 11.5/34.1, on chemistries sodium 133 chloride 100 creatinine 1.2 GFR of 49. UA did show leukocyte esterase of 250 and WBCs of 11 to 25 consistent with an acute cystitis. Coags within normal limits. Per ED provider once patient was evaluated for orthostatic vitals prior to standing her up patient developed spontaneous SVT and heart rate went up to the 170s. At the time of my assessment patient's heart rate was 130 appeared sinus tachycardia on the monitor. On chest x-ray no acute pulmonary infiltrates are seen. Pending repeat EKG CT pulmonary angiogram showed no evidence of pulmonary embolism. Patient was hydrated overnight and tachycardia resolved. Creatinine showed improvement today 1.0 and GFR of 61. From cardiology standpoint she was cleared to be discharged and follow up patient. EEG spot check here in hospital did not appear consistent with a seizure. He was recommended for future EEG done as outpatient if she continues with recurrent syncopal episodes. Reason previous carotid ultrasound show no hemodynamically significant lesion in either extracranial carotid artery systems. This morning patient states feeling much better. No major overnight events as per RN. Patient is hemodynamically stable with a blood pressure 153/72 heart rate in the 70s sinus rhythm respiratory rate of 20 saturating 96% on room air and afebrile. She is stable for discharge. CHRONIC PROBLEMS: continue previous management per PCP unless otherwise indicated MANAGER CUSTOMER SERVICE FINDINGS/RECOMMENDATIONS: [ ] Per Crowning Hammer Operator Dr Arias:Blood pressure is running 130 systolic heart rate is in the 80s. The patient is afebrile. CT pulmonary angiogram showed no evidence of pulmonary embolism. There was no pericardial effusion. The patient has been hydrated. Potassium is 3.2 BUN13 creatinine 1.0 and GFR is improved to 61. The patient has been on carvedilol 5 mg b.i.d. but because of low blood pressures her primary physician had reduced her dose to 12.5 mg b.i.d.. In the office today for admission she was found to be hypertensive and her carvedilol dose was increased. She took two doses and this was followed by her syncopal spell and hypotension. Would suggest that her carvedilol dose be reduced back to 12.5 mg b.i.d.. From a cardiovascular standpoint she can be discharged home. She can follow up with Dr. Ferrell next week. The patient has been symptom free overnight she has had no arrhythmias. My standpoint she can be discharged home. She was scheduled for an EEG but this is not appear to be consistent with a seizure. There was no incontinence she had no postictal phase witnessed no syncope and she was unresponsive for a few seconds. If she has recurrent episodes in the future an EEG could be done as an outpatient. I do not she needs to remain in the hospital for this study. PROCEDURES: Signed PATIENT: VIRI FINCH MR#: [id number] : 1955 SEX: F AGE: 68 LOCATION: [facility] ORDER [id number] STATUS: ADM IN REPORT#: [id number] SERVICE 1629 REASON: syncope, elevated D-dimer ORDERING PHYSICIAN: NO ARIAS MD PROCEDURE: CHES PE - CT CHEST PE PROTOCOL WWO CONT CT angiogram chest CLINICAL INDICATION: syncope, elevated D-dimer COMPARISON: CT chest May 08, 2024. CT Dose Index (CTDI): 113.50 mGy Dose Length Product (DLP): 1408.10 total mGy PROTOCOL: Contrast: 100 cc of Isovue-370, injected IV, no complications Examination is done at 2.5 millimeter volumetric acquisition after contrast administration. Photography is done at 5 millimeter thick intervals for the thorax. FINDINGS: There is no evidence of pulmonary embolism. The airway is intact. The trachea and major bronchi are unremarkable. No pulmonary infiltrates or mass lesions are seen. Stable bilateral apical fibrotic changes are seen. No pleural effusions are identified. The exam of the roldan and mediastinum is unremarkable. No evidence of hilar enlargement is seen. The aorta shows no aneurysmal dilatation or significant atheromatous calcification. There is no thoracic aortic dissection. No significant brachiocephalic vascular abnormalities are seen. The heart is unremarkable. It is not enlarged. No significant coronary arterial calcifications are seen. There is no pericardial effusion. The rib cage appears unremarkable. The soft tissues of the chest wall are unremarkable. The dorsal spine shows no significant abnormalities. Limited evaluation of the upper abdomen demonstrates no gross abnormalities. IMPRESSION: No evidence of pulmonary embolism. This study was performed using dose reduction techniques to include automated exposure control and/or adjustment of the mA and/or kV according to patient size. DICTATED BY: MARIBELL AYON MD DATE: 07/03/241723 ELECTRONICALLY SIGNED BY: MARIBELL AYON MD DATE: 07/03/241727 IMAGING REPORT Signed PATIENT: VIRI FINCH MR#: [id number] : 1955 SEX: F AGE: 68 LOCATION: [facility] ORDER 07 STATUS: ADM IN REPORT#: [id number] SERVICE 160 REASON: rule out cva ORDERING PHYSICIAN: NEFTALY ZAPIEN PROCEDURE: HEAD WO - CT HEAD/BRAIN W/O CONTRAST Exam Type: CT HEAD/BRAIN W/O CONTRAST Clinical Information: rule out cva Comparison: None CT Dose Index (CTDI): 57.33 mGy Dose Length Product (DLP): 956.79 total mGy-cm Findings: There is low attenuation throughout the periventricular white matter locations, consistent with chronic small vessel ischemic changes. No acute intra- or extra-axial fluid collections are seen. There is no evidence of acute or chronic hemorrhage. There is no mass effect or shift of midline structures. There are no areas to suggest acute infarct. The skull windows show no significant abnormalities. IMPRESSION: 1. CHRONIC SMALL VESSEL ISCHEMIC CHANGES. DICTATED BY: MARIBELL AYON MD DATE: 07/03/241730 ELECTRONICALLY SIGNED BY: MARIBELL AYON MD DATE: 07/03/241733 IMAGING REPORT Signed PATIENT: VIRI FINCH MR#: [id number] : 1955 SEX: F AGE: 68 LOCATION: [facility] ORDER 1549 STATUS: ADM IN REPORT#: [id number] SERVICE 1548 REASON: rule out DVT ORDERING PHYSICIAN: NEFTALY ZAPIEN PROCEDURE: VENOUS DALE - US VENOUS DOPPLER BILATERAL US VENOUS DOPPLER BILATERAL HISTORY: Swelling COMPARISON: None TECHNIQUE: Bilateral lower extremity venous Doppler ultrasound study was performed. FINDINGS: The common femoral, femoral, popliteal, and posterior tibial veins are visualized. Normal flow with augmentation and compressibilities are demonstrated. The greater saphenous veins are also seen and grossly patent. IMPRESSION: 1. No evidence of deep venous thrombosis is seen. DICTATED BY: MICHELA CONNOR MD DATE: 07/03/241702 ELECTRONICALLY SIGNED BY: MICHELA CONNOR MD DATE: 07/03/24 170 IMAGING REPORT Signed PATIENT: VIRI FINCH MR#: [id number] : 1955 SEX: F AGE: 68 LOCATION: [facility] ORDER 1453 STATUS: ADM IN REPORT#: [id number] SERVICE 1447 REASON: R/O TROMBUS FORMATIONS ORDERING PHYSICIAN: NEFTALY ZAPIEN PROCEDURE: ECHO CMP - ECHO 2-D COMPLETE APPROVED REPORT EXAM: Two-dimensional and M-mode echocardiogram with Doppler and color Doppler. INDICATION ICD: Rule out thrombus formation 2D Dimensions RVDd 3.2 cm LVEF(%) 67.4 (>50%) LVED Vol(simp.) 67.1 mL IVSd 1.0 (0.7-1.1cm) FS(%) 38 % LVES Vol(simp.) 26.0 mL LVDd 4.9 (3.8-5.6cm) LA (2D) 4.2 (1.6-4.0cm) LVEF(%, simp.) 61 % PWd 1.1 (0.7-1.1cm) Ao Root(2D) 3.4 (2.0-3.7cm) LA ESV INDEX (BP) 26.92 mL/m2 IVSs 1.5 cm LVOT diam 2.1 (1.8-2.4cm) LVDs 3.1 (2.5-4.0cm) IVC diam 1.9 cm PWs 1.2 cm M-Mode Dimensions EPSS 1.1 cm LA (MM) 3.6 (1.6-4.0cm) Ao Root(MM) 3.6 (2.0-3.7cm) Aortic Valve AoV Vmax 1.3 m/s Ao Peak GR 6.8 mmHg LVOT Vmax 1.1 m/s AoV VTI 0.3 m Ao Mean GR 3.9 mmHg LVOT VTI 0.25 m SABA (VMAX) 3.01 cm2 SABA (VTI) 3.0 cm2 Mitral Valve MV E Vmax 81.3 cm/s DECEL Time 210 ms MV A Vmax 104.2 cm/s P 1/2 T 62 ms E/A ratio 0.8 MVA (PHT) 3.5 cm2 TDI E/E' Medial 12.0 E/E' Lateral 10.8 Medial E' Peak V 6.77 cm/s Lateral E' Peak V 7.52 cm/s Pulmonary Valve PV Vmax 0.7 m/s PV Mean GR 1.3 mmHg PV Peak GR 2.2 mmHg Tricuspid Valve RAP (EST) 3 mmHg RVSP 3.0 mmHg Left Ventricle The left ventricle is normal size. There is normal LV segmental wall motion. There is normal left ventricular wall thickness. LVEF is 60-65%. No left ventricle thrombus noted on this study. Stage I diastolic dysfunction. Right Ventricle The right ventricle is normal size. No thrombus noted right ventricle. The right ventricular systolic function is normal. Atria The left atrium size is normal. The right atrium size is normal. Aortic Valve The aortic valve is normal in structure. Trivial aortic regurgitation is present. There is no aortic valvular stenosis. Mitral Valve The mitral valve is normal in structure. There is trace of mitral valve regurgitation noted. There is no mitral valve stenosis. Tricuspid Valve The tricuspid valve is normal in structure. There is trace of tricuspid valve regurgitation noted. Pulmonic Valve The pulmonary valve is normal in structure. There is no pulmonic valvular regu rgitation. Great Vessels The aortic root is normal in size. The IVC is normal in size and collapses >50% with inspiration. Pericardium There is no pericardial effusion. Other Information Quality : Technically difficult study due to body habitus Conclusion LVEF is 60-65%. The right ventricle is normal size. No thrombus noted right ventricle. The right ventricular systolic function is normal. Trivial aortic regurgitation is present. There is trace of mitral valve regurgitation noted. There is trace of tricuspid valve regurgitation noted. DICTATED BY: NO ARIAS MD DATE: 07/03/24 1627 ELECTRONICALLY SIGNED BY: NO ARIAS MD DATE: 07/03/24 1733 IMAGING REPORT Signed PATIENT: VIRI FINCH MR#: [id number] : 1955 SEX: F AGE: 68 LOCATION: [facility] ORDER 1109 STATUS: REG ER REPORT#: [id number] SERVICE 1104 REASON: syncope ORDERING PHYSICIAN: GLYNN POWELL MD PROCEDURE: CXR1VW - CHEST 1VW CHEST 1VW HISTORY: Syncope COMPARISON: 06/17/2024 FINDINGS: A frontal projection of the chest was obtained. No acute pulmonary infiltrates is seen. The heart is borderline enlarged. Degenerative changes are seen. Aortic calcifications are seen. IMPRESSION: 1. No acute pulmonary infiltrate is seen. DICTATED BY: MICHELA CONNOR MD DATE: 07/03/24 1231 ELECTRONICALLY SIGNED BY: MICHELA CONNOR MD DATE: 07/03/24 1234 DISCHARGE MEDICATIONS: Pt hemodynamically stable and afebrile at time of discharge. PCP notified of patients admission, hospital course and discharge. Continued Medications: Alendronate Sodium (Alendronate Sodium) 70 Mg Tablet 1 TAB PO QWEEK for 28 Days, #4 TAB 0 Refills in the morning, at least 30 minutes before the first food, beverage, or medication of the day Aspirin (Aspirin EC) 81 Mg Tablet.dr 81 MG PO DAILY, TAB Carvedilol (Carvedilol) 25 Mg Tablet 1 TAB PO BID for 30 Days, #60 TAB 0 Refills Clopidogrel Bisulfate (Plavix) 75 Mg Tablet 1 TAB PO DAILY for 30 Days, #30 TAB 0 Refills Folic Acid (Folic Acid) 0.8 Mg Capsule 1 CAP PO DAILY for 30 Days, #30 CAP 0 Refills Omeprazole (Omeprazole) 40 Mg Capsule.dr 1 CAP PO DAILY for 30 Days, #30 CAP 0 Refills Pantoprazole Sodium (Pantoprazole Sodium) 40 Mg Tablet.dr 40 MG PO DAILY, TAB Rosuvastatin Calcium (Rosuvastatin Calcium) 10 Mg Tablet 20 MG PO AM, TAB Tizanidine HCl (Tizanidine HCl) 4 Mg Capsule 4 MG PO BID PRN for PAIN, CAP PHYSICAL EXAM: GENERAL: alert, weak, awake oriented x 3 HEENT: EOMI, Sclera non icteric, moist mucosa NECK: Supple, no JVD, trachea midline LUNGS: Wheezes to bilateral upper and lower extremities. HEART: Regular rate and rhythm. Normal S1 and S2, without murmurs ABD: Abdomen soft, nontender. Bowel sounds present EXT: No clubbing cyanosis or edema NEURO: Alert and oriented to person, follows commands FOLLOW-UP: Follow-up with PCP in 2-3 days RECOMMENDATIONS: See Discharge Instructions This case was seen and discussed with my supervising physician. More than 30 minutes spent on discharge process, including evaluation of the patient, discussion with nursing staff, medication reconciliation and follow-up kristina ointments ATTESTATION BY PHYSICIAN I attest that I reviewed and discussed the case with the Physician Tax Attorney as well as agree with the Physician Tax Attorney's findings, plans of care, and documentation above. Ross Welch MD, [facility] Jul 04, 2024 20:59
[2024-07-10] MEDS ORDERED: ALENDRONATE SODIUM 35 MG TAB PO SCH (06:30)
== END 2024-07-04 14:06 | disposition home or self-care (01) ==
LOC: EDH 11:03 → EDHIP 13:31 → INTOOBSV 13:31 → 2DH 18:17
PROVIDERS: ADMIT Internal Medicine; ATTEND Internal Medicine
DX: R55 Syncope and collapse (principal); I47.10 Supraventricular tachycardia, unspecified; N30.00 Acute cystitis without hematuria; I12.9 Hypertensive chronic kidney disease with stage 1 through stage 4 chronic kidney disease, or unspecified chronic kidney disease; N18.31 Chronic kidney disease, stage 3a; I25.10 Atherosclerotic heart disease of native coronary artery without angina pectoris; E86.0 Dehydration; F41.9 Anxiety disorder, unspecified; D53.9 Nutritional anemia, unspecified; N17.9 Acute kidney failure, unspecified; E78.5 Hyperlipidemia, unspecified; K21.9 Gastro-esophageal reflux disease without esophagitis; R42 Dizziness and giddiness; R60.0 Localized edema; F17.200 Nicotine dependence, unspecified, uncomplicated; Z20.822 Contact with and (suspected) exposure to COVID-19; Z98.890 Other specified postprocedural states; Z79.899 Other long term (current) drug therapy; Z90.5 Acquired absence of kidney
CPT/HCPCS: 96376 ×2; 96365; 96375 ×2; 81001; 96361 ×3; 96366 ×2; 99285; 83036; 82550 ×4; 83735 ×2; 84484 ×4; 82330; 80048; 82803; 83880; 80305; 85025; 85378; 85610; 85730 ×4; 87086; 87880; 87804 ×2; 83605; 87426; 36415 ×2; 71045; 70450; 71270; 93306; 93970; 93005 ×4; 36600; 84145; 96367; 80053; 94640; J7120; J3490; J0360; J0696 ×2; J1644 ×2; Q9967; G0378 ×2; J3411; 94664; 96374

== ENCOUNTER 2024-07-27 01:12 | Emergency (ER) | payer OTHER ==
[~2024-07-27] VITALS: Ht 177.8 cm; Wt 81.6 kg
[~2024-07-27 01:12] MED LIST changes: +ALEN70TA80 PO; -CARV12.511 PO; +CARV25TA PO; +CLOP-31 PO; -DULO30CA52 PO; +FOLI0.8C PO; +OMEP40CA21 PO
--- NOTE | 2024-07-27 01:44 | ERN ---
ED Note History of Present Illness Stated Complaint: FALL Chief Complaint: Mechanical Fall Time Seen by MD: 01:17 Dictation: This is a 68-year-old female who presented to the emergency room via EMS with complaints of a mechanical fall when she was trying to get out of shower. She apparently fell and hit the left arm but did not hit the head or rest of the body she had a small skin tear to the left elbow she came into the ER for further evaluation She was noted to have alcohol breath and she admitted to drinking 2-3 drinks a day daily. She is also a current daily heavy smoker. No loss of consciousness, no head injury no blurred vision no diplopia motor weakn ess or seizure activity. She does not take any direct thrombin inhibitors or anticoagulation but takes Plavix Temperature 97.8 pulse 85 respirations 20 blood pressure 138/107 pulse oximetry of 98% on room air Chronic medical problems include hypertension, hypercholesterolemia, coronary artery disease status post cardiac stents and history of left kidney surgery Allergies: Coded Allergies: No Known Allergies (Unverified Allergy, Unknown, 08/20/15) Home Meds Reported Medications Omeprazole (Omeprazole) 40 Mg Capsule.dr, 1 CAP PO DAILY for 30 Days, #30 CAP 0 Refills 07/03/24 Carvedilol (Carvedilol) 25 Mg Tablet, 1 TAB PO BID for 30 Days, #60 TAB 0 Refills 07/03/24 Clopidogrel Bisulfate (Plavix) 75 Mg Tablet, 1 TAB PO DAILY for 30 Days, #30 TAB 0 Refills 07/03/24 Folic Acid (Folic Acid) 0.8 Mg Capsule, 1 CAP PO DAILY for 30 Days, #30 CAP 0 Refills 07/03/24 Alendronate Sodium (Alendronate Sodium) 70 Mg Tablet, 1 TAB PO QWEEK for 28 Days, #4 TAB 0 Refills in the morning, at least 30 minutes before the first food, beverage, or medication of the day 07/03/24 Tizanidine HCl (Tizanidine HCl) 4 Mg Capsule, 4 MG PO BID PRN for PAIN, CAP 06/17/24 Aspirin (Aspirin EC) 81 Mg Tablet.dr, 81 MG PO DAILY, TAB 06/17/24 Rosuvastatin Calcium (Rosuvastatin Calcium) 10 Mg Tablet, 20 MG PO AM, TAB 06/17/24 Pantoprazole Sodium (Pantoprazole Sodium) 40 Mg Tablet.dr, 40 MG PO DAILY, TAB 06/17/24 Past Medical History Past Medical History: Angina, CAD, High Cholesterol, Hypertension Surgical History: Hysterectomy, Other Surgical History Other: CARDIAC STENT, BILATERAL KNEE, RT SHOULDER, LEFT KIDNEY REMOVAL Family History: Negative Social History: Smokers, ETOH History: Not Applicable RN Note Reviewed/Agreed w/PFSH: Yes Review of System Dictation Constitutional: Negative for fever,chills, and weight loss Eyes: Negative for injury, pain,redness, and discharge ENT: Negative for injury,pain or swelling Cardiovascular: Negative for chest pain, palpitations, and edema Respiratory: Negative for shortness of breath, cough, and wheezing, Abdomen/GI: Negative for abdominal pain, nausea, vomiting, diarrhea, and constipation Back: Negative for injury and pain : Negative for injury, bleeding and discharge MS/Extremity: Negative for injury and deformity Skin: Negative for rash, and discoloration Neuro: Negative for headache, weakness, numbness, tingling, and seizure Psych: Negative for suicide ideation, homicidal ideation, and hallucinations Initial Vital Sign VS Vital Signs Date Time Temp Pulse Resp B/P (MAP) Pulse Ox O2 Delivery O2 Flow Rate FiO2 07/27/24 01:14 97.9 85 20 138/107 98 Room Air Physical Exam Dictation General: awake, alert, NAD slurred speech appears under alcohol influence Head/Face: Normocephalic, atraumatic Eyes: PERRL, EOMI, vision at baseline ENT: oral cavity clear, TMs clear, no signs of infection Neck: Trachea midline, supple, no nuchal rigidity Cardiovascular: RRR, normal S1/S2, No MRGs, no JVD Respiratory: CTAB, no respiratory distress, No rales or wheezes Abdomen: Soft, non-tender, non-distended, normal bowel sounds, no guarding or r ebound. Skin: Warm, dry, normal turgor, no rash left forearm right before the elbow joint 6 cm laceration was noted no active bleeding. Extensive ecchymosis on the elbow as well as other areas some are old MS/Extremity: Pulses equal, no cyanosis, neurovascular intact, FROM Neuro: COAx4, GCS 15, strength 5/5, CN 2-12 intact, normal cerebellar exam, normal gait, Psych: Normal behavior, mood, and affect normal Extremities-trace edema without any palpable cords, Homans sign is negative Results (Laboratory/Radiology) Labs Reviewed?: Yes ED Course ED Course Orders Procedure Category Date Status Time Alcohol, Blood LAB 07/27/24 Logged 01:40 Cbc With Differential LAB 07/27/24 Logged 01:40 Basic Metabolic Panel LAB 07/27/24 Logged 01:40 Urinalysis Profile LAB 07/27/24 Logged 01:40 Dermabond (Dermabond) PHA 07/27/24 Complete 02:04 Current Medications Medications (Trade) Dose Ordered Sig/Aixa Route PRN Reason Start Time Stop Time Status Last Admin Dose Admin Octyl Cyanoacrylate (Dermabond) 1 each STK-MED ONCE TP 07/27/24 02:04 07/27/24 02:10 DC Vital Signs Date Time Temp Pulse Resp B/P (MAP) Pulse Ox O2 Delivery O2 Flow Rate FiO2 07/27/24 01:14 97.9 85 20 138/107 98 Room Air We will perform diagnostic labs, advanced imaging and administer medications according to the patient's complaint. Once the results are available, will review and personally interpreted the labs to rule out any acute life- threatening emergency the trach require immediate intervention and treatment. I will then re-evaluate the patient after treatment and diagnostic exams have return to determine whether the patient requires any further testing, can safely be discharged home or need further admission to hospital for additional treatment and evaluation. Patient declined any lab work and just want her left forearm laceration repaired. I explained to them that we may miss any changes or systemic abnormalities. They verbalized understanding but still declined any lab work or x-rays or imaging studies at this time The skin tear in the left forearm about 6 cm long somewhat jagged. Skin extremely thin and fragile not conducive to suturing so it was up apposed and Dermabond was placed with Steri-Strips Gauze and dressing applied patient will be discharged to follow up with her primary care physician Medical Decision Making MDM MDM: Differential diagnosis: Fall from standing, elbow fracture, laceration, abrasions, contusions Rationale: Tests considered and ordered secondary to shared decision making include: Previous outside records reviewed: Old ER visits. Risk of complication and/or morbidity or mortality of patient management: None Medications-Per medication reconciliation Need for hospitalization: Patient does not meet criteria for hospitalization. Need for emergency major/minor surgery: No There are no social concerns with this patient. Prescription drug management Prescriptions will include symptomatic care Patient's prior external medical records from other ER visits were reviewed by me as indicated. Prior testing and results from previous visits were reviewed. Prior tests were taken into account with medical decision making and resource utilization, independent historian/historians were used to obtain complete medical history. I independently interpreted the test that were performed, results were reviewed by me and considered findings on radiology if ordered. Medical management and examination interpretation discussions were had by me wit h other qualified healthcare professionals as indicated for the patient's care. Procedure Procedure Dictation: Superficial laceration repair Left elbow and forearm--skin laceration size about 6 cm somewhat jagged edges Patient's skin was extremely thin and fragile and hence Dermabond was the best option for her. After the area was cleaned irrigated then the edges were opposed to as much normal as possible and Dermabond was applied and Steri-Strips placed. Sterile dressing and Yosef bandage wrapped. Patient tolerated the procedure well but she was constantly moving her elbow to see what has been done had to be redirected multiple times Wound Location: upper extremity Wound's Depth, Shape: superficial Wound Explored: clean Irrigated w/ Saline (ccs): 15 Betadine Prep?: Yes Wound Debrided: minimal Wound Repaired With: Steri-strips, Dermabond Sterile Dressing Applied?: Yes Problem List Problem List: (1) Fall (2) Laceration of elbow, left (3) Contusion of elbow, left DX & DISP Disposition: Discharge Departure Impression: Primary Impression: Fall Additional Impressions: Laceration of elbow, left, Contusion of elbow, left Condition: Stable Additional Instructions: Patient and the caregiver have been informed of all the diagnostic tests and the imaging conducted during the today's visit to the emergency room and has verbalized understanding of the results I have personally reviewed and interpreted all diagnostic exams performed here in the ER today as well as the vital signs documented by the nursing staff. The patient is now being discharged to home and should follow up with the primary care physician or the specialist as directed by the ER staff. Follow-up with primary care provider in 1 to 2 days. Take medications as directed here in the emergency room. Okay to continue home medications unless otherwise discussed during your visit in the emergency room today. Return to your nearest emergency room if symptoms worsen or if there is no improvement. Call 911 if you need immediate assistance. Take Tylenol or Motrin [id number] as needed and if no contraindications are present. Increase oral hydration. A wound culture or urine culture was ordered here in the emergency room department please follow-up with primary care provider and advise them to get repeat ports from our facility. If you had any Yosef wrap/splints that were applied here, please do not remove them until you see your primary care or specialty. Referrals: KE WASHINGTON MD (PCP) RONI BARGER MD July 27, 2024 01:44
--- NOTE | 2024-07-27 01:50 | NUR ---
PATIENT AND PATIENT'S REFUSED BLOOD WORK TO BE DRAWN. BOTH PATIENT'S AND SPOUSE WERE EDUCATED ON AND VERBALIZED UNDERSTANDING OF THE IMPORTANCE OF BLOOD WORK ORDERED BY ED MD. ED MD MADE AWARE
--- NOTE | 2024-07-27 02:18 | NUR ---
WOUND CARE DONE ORDERED
[2024-07-27] MEDS: OCTYL 2-CYANOACRYLATE 1 EACH TP ONE ×2 (02:28)
[2024-07-27 02:42] VITALS: BP 137/70; PULSE 90; RESP 18; TEMP 98.2; O2SAT 98
== END 2024-07-27 02:45 | disposition home or self-care (01) ==
LOC: EDH 01:12
DX: S51.012A Laceration without foreign body of left elbow, initial encounter (principal); E78.00 Pure hypercholesterolemia, unspecified; F17.200 Nicotine dependence, unspecified, uncomplicated; I10 Essential (primary) hypertension; I25.10 Atherosclerotic heart disease of native coronary artery without angina pectoris; Z79.02 Long term (current) use of antithrombotics/antiplatelets; Z79.82 Long term (current) use of aspirin; Z79.899 Other long term (current) drug therapy; Z90.710 Acquired absence of both cervix and uterus; Z95.5 Presence of coronary angioplasty implant and graft; W18.39XA Other fall on same level, initial encounter; Y93.89 Activity, other specified; Y92.89 Other specified places as the place of occurrence of the external cause; Y99.8 Other external cause status
CPT/HCPCS: 12002; 99284